=== PATIENT | female | born 1955 | race Caucasian/White ===

== ENCOUNTER → 2017-01-13 | Outpatient (CLI) | payer BC ==
[~2017-01-13] MED LIST: ATEN-173 PO; ATV1 PO; CLX20 PO; DTR5 PO; OMEG10007 PO; PRLSR20 PO; SIMV20TA2 PO
--- NOTE | 2017-01-13 13:24 | MAMMOGRAPHY REPORT ---
BILATERAL DIGITAL DIAGNOSTIC MAMMOGRAM TOMOSYNTHESIS WITH CAD AND TARGETED RIGHT ULTRASOUND: 01/13/20 17 CLINICAL HISTORY: The patient reports constant pain in the right upper outer quadrant for approximat juliette 6 months. She denies any palpable lumps. TECHNIQUE: Breast tomosynthesis in addition to standard 2D mammography was performed. Current study was also evaluated with a Computer Aided Detection (CAD) system. Bilateral CC and MLO 2-D and chata synthesis images were obtained. COMPARISON: Comparison is made to exams dated: 12/31/2015 mammogram, 12/28/2014 mammogram, 11/21/2013 mammogram, 01/09/2015 mammogram, 11/18/2012 mammogram, and 11/04/2011 mammogram - [facility]. BREAST COMPOSITION: The tissue of both breasts is heterogeneously dense, which may obscure small ma sses. FINDINGS: A triangle marker wilkinson the site of pain in the right upper outer quadrant. There are no suspicious masses, calcifications, or areas of architectural distortion noted in either breast. Th ere has been no significant interval change compared to prior exams. Scattered bilateral benign-varun earing calcifications are not significantly changed. Targeted ultrasound was performed of the area of pain pointed out by the patient, involving the righ t breast at 12:00 and right upper outer quadrant. Sonographically normal tissue is seen, without ev idence of a mass or other suspicious sonographic abnormality. IMPRESSION: ACR BI-RADS CATEGORY 2: BENIGN, TARGETED ULTRASOUND ACR BI-RADS CATEGORY 2: BENIGN No suspicious mammographic or sonographic abnormality at the site of right breast pain. There is no mammographic or targeted sonographic evidence of malignancy. Recommend clinical follow-up for righ t breast pain, and recommend routine bilateral screening mammograms in one year. The patient has been verbally notified of the results. Approximately 10% of breast cancers are not detected with mammography. A negative mammographic repor t should not delay biopsy if a clinically suggestive mass is present. Candida Brice M.D. /:01/13/2017 09:46:33 Child Welfare Consultant: Heide GUTIERREZ)(Ramos), [facility] letter sent: Normal 1/2 BI-RADS Code: ACR BI-RADS Category 2: Benign Ultrasound BI-RADS: ACR BI-RADS Category 2: Benign
== END | disposition home or self-care (01) ==
LOC: C.MAMM 09:16
PROVIDERS: ATTEND Family Medicine
DX: N64.4 Mastodynia (principal)

== ENCOUNTER → 2018-01-15 | Outpatient (CLI) | payer OTHER ==
--- NOTE | 2018-01-18 14:49 | MAMMOGRAPHY REPORT ---
BILATERAL DIGITAL SCREENING MAMMOGRAM TOMOSYNTHESIS WITH CAD: 01/15/2018 CLINICAL HISTORY: Routine screening. Patient has no complaints. TECHNIQUE: Breast tomosynthesis in addition to standard 2D mammography was performed. Current study was also evaluated with a Computer Aided Detection (CAD) system. COMPARISON: Comparison is made to exams dated: 01/13/2017 mammogram, 12/31/2015 mammogram, 07/09/2015 ul trasound, 07/09/2015 mammogram, 01/09/2015 ultrasound, and 01/09/2015 mammogram - [facility]. BREAST COMPOSITION: The tissue of both breasts is heterogeneously dense, which may obscure small mas ses. FINDINGS: No suspicious masses, calcifications, or areas of architectural distortion are noted in ei ther breast. There has been no significant interval change compared to prior exams. IMPRESSION: ACR BI-RADS CATEGORY 1: NEGATIVE There is no mammographic evidence of malignancy. A 1 year screening mammogram is recommended. The pa tient will receive written notification of the results. Approximately 10% of breast cancers are not detected with mammography. A negative mammographic report should not delay biopsy if a clinically suggestive mass is present. Candida Brice M.D. ah/:01/15/2018 15:02:31 Service Superintendent: Addie DEGROOT(Angella)(M), [facility] letter sent: Normal 1/2 BI-RADS Code: ACR BI-RADS Category 1: Negative
== END | disposition home or self-care (01) ==
LOC: C.MAMM 09:21
PROVIDERS: ATTEND Physician Assistant
DX: Z12.31 Encounter for screening mammogram for malignant neoplasm of breast (principal)

== ENCOUNTER 2021-03-06 09:16 | Inpatient (IN) ==
[2021-03-06] MEDS ORDERED: ALBUTEROL HFA 8 GM INHALER INH ONE (09:53)
[2021-03-06] MEDS ORDERED: SODIUM CHLORIDE 0.9% 1000ML 500 ML IV ONE ×2 (09:53→11:32)
[2021-03-06] MEDS ORDERED: ACETAMINOPHEN 500 MG TAB PO STA (09:53)
[2021-03-06] MEDS ORDERED: BENZONATATE 100 MG CAPSULE PO ONE (09:53)
--- NOTE | 2021-03-06 10:00 | Emergency Department Note ---
Impression & Plan Hypoxia, SOB (shortness of breath), Pneumonia, COVID-19 ED Provider Note NAME: MARGRET RAZO AGE: 65 SEX: F : 1955 ARRIVES VIA: Walk-In INFORMANT: [Patient] ED PROVIDER(S): [Yves Villarreal MD] CHIEF COMPLAINT: Short of breath HISTORY OF PRESENT ILLNESS: The patient is a 65-year-old female who presents to the ER with complaints of shortness of breath and cough. The patient has been feeling ill for a few weeks with flulike symptoms. She has had diarrhea, she lost her taste and smell, she has had fatigue and a fever. She has been short of breath with the cough. In the last day or so, her shortness of breath has worsened and her cough has worsened. She thinks the fever has subsided. The patient did test positive for COVID-19 3 days ago. She states that her family at home has Covid as well. The patient has not had any underlying lung disease diagnosed previously. She states that she has never had a DVT or PE. She has no cardiac history. Of note, her physician's office did start her on a Z-Selvin 2 days ago. She is taking this as prescribed. Of note, the patient's son called to the ED and told us we would need to check the patient's CO2 levels. REVIEW OF SYSTEMS: See HPI for pertinent positives and negatives. A total of ten systems were reviewed and were otherwise negative. PMHx/PSHx: See Below SOCIAL HISTORY: See Below. PHYSICAL EXAM: GENERAL: Patient is in no acute distress. HEENT: No acute trauma, normocephalic atraumatic, mucous membranes moist, no nasal congestion, no scleral icterus. NECK: No stridor, no adenopathy, no meningismus, trachea is midline. LUNGS: Scattered crackles at both bases, no wheezing. She is short of breath with longer sentences. No respiratory distress. HEART: Without murmurs gallops or rubs, regular rate and rhythm. ABDOMEN: Soft, nontender, bowel sounds positive, no hernias, no peritonitis. EXTREMITIES: No cyanosis or edema, full range of motion of all the joints without pain or difficulty, no signs for acute trauma. NEUROLOGIC: Oriented x 3, no acute motor or sensory deficits, no focal weakness. SKIN: No rash, no jaundice, no diaphoresis. DIFFERENTIAL DIAGNOSIS: Reactive airway disease, pneumonia, pneumothorax, COPD, CHF, COVID-19, influenza, infection, cardiac ischemia, pulmonary embolism, bronchitis, musculoskeletal, gastrointestinal, as well as other pathologies. EMERGENCY DEPARTMENT COURSE/PROCEDURES: ECG: Indication was shortness of breath. The ECG shows a normal sinus rhythm with a rate of 87. There is some baseline artifact. The QTc is 440. I see no ST elevation, no PVCs. Continuous Cardiac Monitoring: An order was placed for continuous cardiac monitoring. The monitor shows a rate of 102 with sinus tachycardia. MEDICAL DECISION MAKING: There is no leukocytosis or concerning anemia. There is a normal platelet count. No coagulopathy. D-dimer was elevated at 1130. VBG did not show any acidosis or CO2 retention. The PO2 was 26. Renal panel testing showed a somewhat low potassium at 3.1, no kidney failure. No liver enzyme elevation. ECG shows a sinus rhythm, no acute ischemia. Cardiac enzyme testing x1 is not consistent with acute cardiac injury. Chest film does show bilateral infiltrates consistent with a Covid pneumonia. Chest CT shows the same Covid pneumonia, no PE. The patient did have a low O2 saturation here at 90%. She has been feeling short of breath. She has COVID-[address] and by chest x-ray. I did confirm a positive Covid test from a few days ago through the [facility] system. Patient was given IV Decadron, 6 mg. She was given albuterol via MDI. She received a liter of IV saline for hydration. She was given IV potassium for the lower potassium value. Patient was given oral Tylenol and a dose of oral Tessalon. Given the findings of pneumonia, given the hypoxia, given her worsening dyspnea, I do think a hospital stay is warranted. I spoke to the patient and case management. The on-call hospitalist was consulted. Past Med/Surg History Medical History Acid reflux Chronic constipation Gastroparesis Hyperlipidemia Left knee DJD Persistent insomnia Sleep apnea Social History Smoking Status: Never smoker Second Hand Exposure: No; Do You Dip or Chew Tobacco: No; Tobacco Cessation Education Requested by Patient: No Hx Alcohol Use: No Hx Substance Use: No Preferred Language: Yi Communication Ability: Effective Registered Respiratory Technician Required: No Beliefs That Will Affect Care: None Current Living Situation: Family Current Living Situation Comment: With Granddaughter Other Information That Helps Us Care for You: No Feels Safe at Home: Yes Safety Concerns: Feels Safe At This Time Assistive Devices: None Allergies Allergies Allergy/AdvReac Type Severity Reaction Status Date / Time sulfamethoxazole Allergy Severe tongue Verified 03/06/21 13:50 [From Bactrim] blisters, rash trimethoprim [From Bactrim] Allergy Severe tongue Verified 03/06/21 13:50 blisters, rash bupropion [From Wellbutrin] Allergy Intermediate rash Verified 03/06/21 13:50 codeine AdvReac Mild HEADACHE,N& Verified 01/04/10 03:47 V Opioids - Morphine Analogues AdvReac Unknown headache Verified 03/06/21 13:50 Home Meds Home Medications Medication Instructions Recorded Confirmed citalopram 40 mg PO DAILY 03/06/21 03/06/21 famotidine 20 mg PO BID 03/06/21 03/06/21 losartan 50 mg PO DAILY 03/06/21 03/06/21 simvastatin 20 mg PO QPM 03/06/21 03/06/21 Results & Data (ED) Vital Signs Vital Signs - 24 hr 03/06/21 09:16 03/06/21 09:19 03/06/21 09:53 Temperature 36.7 C Temperature Source Temporal Artery Scan Pulse Rate 103 H Pulse Rate [Right Finger] Pulse Rate from SpO2 Sensor Pulse Rhythm [Right Finger] Pulse Strength [Right Finger] Respiratory Rate 24 Respiratory Effort / Characteristics Respiratory Depth Respiratory Pattern Regular Blood Pressure 156/96 H Blood Pressure [Right Arm] Blood Pressure Mean 116 Blood Pressure Mean [Right Arm] Blood Pressure Position Sitting Blood Pressure Position [Right Arm] Pulse Oximetry 90 90 91 Oxygen Delivery Method Nasal Cannula Room Air Room Air Oxygen Flow Rate 0 Sepsis Recent Fever Within 48 Hours No Sepsis New/Unexplained Change in Mental Status No Sepsis Action Taken by Nursing Physician Notified Oxygen Flow Rate - Titration 2 Pulse Oximetry Post Tiitration 97 03/06/21 10:16 03/06/21 10:30 03/06/21 11:00 Temperature Temperature Source Pulse Rate 90 86 Pulse Rate [Right Finger] Pulse Rate from SpO2 Sensor 86 84 Pulse Rhythm [Right Finger] Pulse Strength [Right Finger] Respiratory Rate 14 20 Respiratory Effort / Characteristics Respiratory Depth Respiratory Pattern Blood Pressure Blood Pressure [Right Arm] Blood Pressure Mean Blood Pressure Mean [Right Arm] Blood Pressure Position Blood Pressure Position [Right Arm] Pulse Oximetry 99 100 Oxygen Delivery Method Oxygen Flow Rate Sepsis Recent Fever Within 48 Hours Sepsis New/Unexplained Change in Mental Status Sepsis Action Taken by Nursing Oxygen Flow Rate - Titration Pulse Oximetry Post Tiitration 03/06/21 11:10 03/06/21 11:16 03/06/21 11:30 Temperature Temperature Source Pulse Rate Pulse Rate [Right Finger] 107 H Pulse Rate from SpO2 Sensor 85 82 Pulse Rhythm [Right Finger] Regular Pulse Strength [Right Finger] Normal Respiratory Rate 18 Respiratory Effort / Characteristics Non-Labored Spontaneous Respiratory Depth Normal Respiratory Pattern Blood Pressure 159/96 H 164/90 H Blood Pressure [Right Arm] 117/77 Blood Pressure Mean 117 114 Blood Pressure Mean [Right Arm] 90 Blood Pressure Position Blood Pressure Position [Right Arm] Lying Pulse Oximetry 97 93 100 Oxygen Delivery Method Nasal Cannula Oxygen Flow Rate 2 Sepsis Recent Fever Within 48 Hours Sepsis New/Unexplained Change in Mental Status Sepsis Action Taken by Nursing Oxygen Flow Rate - Titration Pulse Oximetry Post Tiitration 03/06/21 11:31 03/06/21 12:16 03/06/21 12:20 Temperature Temperature Source Pulse Rate Pulse Rate [Right Finger] Pulse Rate from SpO2 Sensor 81 97 H 100 H Pulse Rhythm [Right Finger] Pulse Strength [Right Finger] Respiratory Rate Respiratory Effort / Characteristics Respiratory Depth Respiratory Pattern Blood Pressure 117/77 Blood Pressure [Right Arm] Blood Pressure Mean 90 Blood Pressure Mean [Right Arm] Blood Pressure Position Blood Pressure Position [Right Arm] Pulse Oximetry 100 93 93 Oxygen Delivery Method Oxygen Flow Rate Sepsis Recent Fever Within 48 Hours Sepsis New/Unexplained Change in Mental Status Sepsis Action Taken by Nursing Oxygen Flow Rate - Titration Pulse Oximetry Post Tiitration 03/06/21 12:30 03/06/21 12:31 03/06/21 13:00 Temperature Temperature Source Pulse Rate Pulse Rate [Right Finger] 86 Pulse Rate from SpO2 Sensor 84 84 86 Pulse Rhythm [Right Finger] Regular Pulse Strength [Right Finger] Normal Respiratory Rate 18 Respiratory Effort / Characteristics Non-Labored Spontaneous Respiratory Depth Normal Respiratory Pattern Blood Pressure 128/73 126/82 Blood Pressure [Right Arm] 126/82 Blood Pressure Mean 91 96 Blood Pressure Mean [Right Arm] 96 Blood Pressure Position Blood Pressure Position [Right Arm] Pulse Oximetry 98 98 97 Oxygen Delivery Method Nasal Cannula Oxygen Flow Rate 2 Sepsis Recent Fever Within 48 Hours Sepsis New/Unexplained Change in Mental Status Sepsis Action Taken by Nursing Oxygen Flow Rate - Titration Pulse Oximetry Post Tiitration 03/06/21 13:01 03/06/21 13:30 03/06/21 13:31 Temperature Temperature Source Pulse Rate 79 79 Pulse Rate [Right Finger] Pulse Rate from SpO2 Sensor 87 80 80 Pulse Rhythm [Right Finger] Pulse Strength [Right Finger] Respiratory Rate 18 14 Respiratory Effort / Characteristics Respiratory Depth Respiratory Pattern Blood Pressure 128/72 Blood Pressure [Right Arm] Blood Pressure Mean 90 Blood Pressure Mean [Right Arm] Blood Pressure Position Blood Pressure Position [Right Arm] Pulse Oximetry 99 96 98 Oxygen Delivery Method Oxygen Flow Rate Sepsis Recent Fever Within 48 Hours Sepsis New/Unexplained Change in Mental Status Sepsis Action Taken by Nursing Oxygen Flow Rate - Titration Pulse Oximetry Post Tiitration Home Medications Current Medication List: was personally reviewed by me Laboratory Data Attestation: I reviewed the patient's lab results. Result diagrams: 03/06/21 10:22 03/06/21 10:22 Lab Results 03/06/21 03/06/21 03/06/21 Range/Units 10:22 10:22 10:22 WBC 5.83 (4.8-10.8) K/uL RBC 4.22 (4.2-5.4) M/uL Hgb 13.0 (12.0-16.0) g/dL Hct 37.9 (37-47) % MCV 89.8 (80-100) fL MCH 30.8 (25-34) pg MCHC 34.3 (32-36) g/dL RDW Std Deviation 42.2 (36.4-46.3) fL RDW Coeff of Lashonda 12.8 (11.5-14.5) % Plt Count 200 (130-400) K/uL MPV 10.0 (7.4-10.4) fL Immature Gran % (Auto) 0.2 % Neut % (Auto) 81.9 % Lymph % (Auto) 10.5 % Throckmorton % (Auto) 7.2 % Eos % (Auto) 0.0 % Baso % (Auto) 0.2 % Neut # (Auto) 4.78 (1.4-6.5) K/uL Lymph # (Auto) 0.61 L (1.2-3.4) K/uL Th[place]morton # (Auto) 0.42 (0.11-0.59) K/uL Eos # (Auto) 0.00 (0-0.5) K/uL Baso # (Auto) 0.01 (0-0.2) K/uL Immature Gran # (Auto) 0.01 (0.00-0.02) K/uL PT 9.4 (9.0-12.0) Seconds INR 0.9 (0.9-1.1) APTT 25.6 (21.0-31.0) Seconds PTT Ratio 1.0 D-Dimer 1130 H* (0-500) ug/L FEU VBG pH (7.36-7.41) VBG pCO2 (38-50) mmHg VBG pO2 mmHg VBG HCO3 mmol/L VBG O2 Saturation % VBG Base Excess mEq/L Barometric Pressure mm/Hg Sodium 137 (136-145) mmol/L Potassium 3.1 L (3.5-5.1) mmol/L Chloride 103 (98-107) mmol/L Carbon Dioxide 29 (21-32) mmol/L Anion Gap 5.0 (3-11) BUN 12 (7-18) mg/dl Creatinine 0.78 (0.6-1.2) mg/dl Est Cr Clr Drug Dosing 67.7 ml/min Est GFR ( Amer) 91.8 Est GFR (Non-Af Amer) 79.2 BUN/Creatinine Ratio 15.3 (10-20) Glucose 119 H (70-99) mg/dl Calcium 8.7 (8.5-10.1) mg/dl Magnesium 2.1 (1.8-2.4) mg/dl Total Bilirubin 0.4 (0.2-1) mg/dl AST 28 (15-37) U/L ALT 24 (12-78) U/L Alkaline Phosphatase 69 (45-117) U/L Troponin I < 0.015 (0-0.045) ng/ml Total Protein 7.4 (6.4-8.2) gm/dl Albumin 3.3 L (3.4-5.0) gm/dl Globulin 4.1 H (2.5-4.0) gm/dl Albumin/Globulin Ratio 0.8 L (0.9-2) 03/06/21 Range/Units 10:22 WBC (4.8-10.8) K/uL RBC (4.2-5.4) M/uL Hgb (12.0-16.0) g/dL Hct (37-47) % MCV (80-100) fL MCH (25-34) pg MCHC (32-36) g/dL RDW Std Deviation (36.4-46.3) fL RDW Coeff of Lashonda (11.5-14.5) % Plt Count (130-400) K/uL MPV (7.4-10.4) fL Immature Gran % (Auto) % Neut % (Auto) % Lymph % (Auto) % Th[place]morton % (Auto) % Eos % (Auto) % Baso % (Auto) % Neut # (Auto) (1.4-6.5) K/uL Lymph # (Auto) (1.2-3.4) K/uL [place]morton # (Auto) (0.11-0.59) K/uL Eos # (Auto) (0-0.5) K/uL Baso # (Auto) (0-0.2) K/uL Immature Gran # (Auto) (0.00-0.02) K/uL PT (9.0-12.0) Seconds INR (0.9-1.1) APTT (21.0-31.0) Seconds PTT Ratio D-Dimer (0-500) ug/L FEU VBG pH 7.45 H (7.36-7.41) VBG pCO2 46 (38-50) mmHg VBG pO2 26 mmHg VBG HCO3 31 mmol/L VBG O2 Saturation < 60.0 % VBG Base Excess 5.8 mEq/L Barometric Pressure 731.9 mm/Hg Sodium (136-145) mmol/L Potassium (3.5-5.1) mmol/L Chloride (98-107) mmol/L Carbon Dioxide (21-32) mmol/L Anion Gap (3-11) BUN (7-18) mg/dl Creatinine (0.6-1.2) mg/dl Est Cr Clr Drug Dosing ml/min Est GFR ( Amer) Est GFR (Non-Af Amer) BUN/Creatinine Ratio (10-20) Glucose (70-99) mg/dl Calcium (8.5-10.1) mg/dl Magnesium (1.8-2.4) mg/dl Total Bilirubin (0.2-1) mg/dl AST (15-37) U/L ALT (12-78) U/L Alkaline Phosphatase (45-117) U/L Troponin I (0-0.045) ng/ml Total Protein (6.4-8.2) gm/dl Albumin (3.4-5.0) gm/dl Globulin (2.5-4.0) gm/dl Albumin/Globulin Ratio (0.9-2) Administered Medications Remdesivir 200 mg/ Sodium (Chloride) 250 mls @ 125 mls/hr IV ONE ONE; Protocol Stop: 03/06/21 18:29 Last Admin: 03/06/21 16:44 Dose: 125 mls/hr Documented by: [id number] Sodium Chloride (Sodium Chloride 0.9% 10ml Flush) 30 ml IV DAILY@1200 AMANDA Stop: 03/10/21 12:01 Last Admin: 03/06/21 16:45 Dose: 30 ml Documented by: [id number] Discontinued Medications Acetaminophen (Acetaminophen 500 Mg Tab) 1,000 mg PO NOW STA Stop: 03/06/21 09:54 Last Admin: 03/06/21 11:04 Dose: 1,000 mg Documented by: [id number] Albuterol (Albuterol Hfa 8 Gm Inhaler) 3 puffs INH NOW ONE Stop: 03/06/21 09:54 Last Admin: 03/06/21 11:04 Dose: 60 puffs Documented by: [id number] Benzonatate (Benzonatate 100 Mg Capsule) 100 mg PO NOW ONE Stop: 03/06/21 09:54 Last Admin: 03/06/21 11:04 Dose: 100 mg Documented by: [id number] Dexamethasone Sodium Phosphate (DexamethasonePf 10 Mg/Ml Vial) 6 mg IV NOW ONE Stop: 03/06/21 12:53 Last Admin: 03/06/21 13:03 Dose: 6 mg Documented by: [id number] Sodium Chloride (Nss 1000ml) 500 mls @ 999 mls/hr IV .Q31M ONE Stop: 03/06/21 10:23 Last Infusion: 03/06/21 11:04 Dose: 0 mls/hr Documented by: [id number] Admin: 03/06/21 10:29 Dose: 999 mls/hr Documented by: [id number] Potassium Chloride (K Chad / Wtr) 10 meq in 100 mls @ 100 mls/hr IV ONE ONE Stop: 03/06/21 12:31 Last Infusion: 03/06/21 15:30 Dose: 0 mls/hr Documented by: [id number] Admin: 03/06/21 12:18 Dose: 100 mls/hr Documented by: [id number] Sodium Chloride (Nss 1000ml) 500 mls @ 999 mls/hr IV .Q31M ONE Stop: 03/06/21 12:02 Last Infusion: 03/06/21 15:30 Dose: 0 mls/hr Documented by: [id number] Admin: 03/06/21 12:17 Dose: 999 mls/hr Documented by: [id number] Ioversol (Optiray 320 125ml) 120 ml IV ONCE ONE Stop: 03/06/21 12:10 Last Admin: 03/06/21 12:09 Dose: 120 ml Documented by: [id number] Potassium Chloride (Potassium Chloride Pwd 20 Meq Pack) 40 meq PO ONE ONE Stop: 03/06/21 16:31 Last Admin: 03/06/21 16:45 Dose: 40 meq Documented by: [id number] Imaging Data Radiologist's Impression: Chest CTA 03/06/21 09:53 CT angio chest PE protocol CT DOSE: 533.26 mGycm HISTORY: 65 years-old Female with PE. Acute shortness of breath. COVID Positive. TECHNIQUE: Multiple CTA images of the chest were obtained after the intravenous administration of 120 ml Optiray 320. Coronal and sagittal MIPS were obtained from the axial data set and were submitted for review. All measurements were obtained according to NASCET criteria. A dose lowering technique was utilized adhering to the principles of ALARA. COMPARISON: Chest radiograph of same day FINDINGS: CTA: Heart is upper limits of normal in size. There is no pericardial effusion. There is no thoracic aortic aneurysm or dissection. The opacified pulmonary artery is unremarkable. No filling defects identified to suggest pulmonary emboli. CT CHEST: Multinodular thyroid with nodules measuring up to 1.2 cm on the left. There is a 3.4 x 2.5 cm ovoid soft tissue attenuating right paratracheal mass on image 182 series 4 suggestive of a pathologic lymph node. There are a few prominent nonenlarged paratracheal, AP window and hilar lymph nodes measuring up to 8-9 mm which are likely reactive. There is no pneumothorax or pleural effusion. Scattered multifocal peripheral prominent groundglass opacities in a bilateral multilobar distribution. No overt pulmonary edema or suspicious pulmonary nodule. The central airways are patent. Small hiatal hernia. Cholecystectomy. Probable cyst of the superior pole right kidney, 4.8 cm. No acute fracture or marrow replacing process. IMPRESSION: 1. No pulmonary emboli. 2. Multilobar bilateral peripheral predominant groundglass opacities compatible with multifocal viral pneumonia. 3. 3.4 x 2.5 cm right paratracheal lymph node is larger in size than expected for a reactive lymph node. A 2 month follow-up chest CT is recommended to further evaluate. 4. Small hiatal hernia. ACT 112: Negative or not required by law. The above report was generated using voice recognition software. It may contain grammatical, syntax or spelling errors. Electronically signed by: Hussein Ortega M.D. 03/06/2021 12:27 PM Chest X-Ray 03/06/21 09:53 XR chest 1V portable HISTORY: 65 years-old Female SOB acute shortness of breath COMPARISON: Chest radiographs 03/03/2021 TECHNIQUE: Portable AP view the chest FINDINGS: Cardiomediastinal and hilar silhouettes are within normal limits. Mildly progressed ill-defined left greater then right bibasilar and peripheral predominant airspace opacities. No pneumothorax, pleural effusion or overt pulmonary edema. Bones of the chest appear grossly intact. Degenerative changes of the shoulders and spine. IMPRESSION: Progressive bibasilar predominant airspace opacities suggestive of multifocal pneumonia. ACT 112: Negative or not required by law. The above report was generated using voice recognition software. It may contain grammatical, syntax or spelling errors. Electronically signed by: Hussein Ortega M.D. 03/06/2021 10:20 AM Discharge Plan Visit Data Chief Complaint: Shortness of Breath/Dyspnea Stated Complaint: COVID PNX, INCREASED SOB TODAY ED Provider: Yves Villarreal Discharge Problem: Hypoxia, SOB (shortness of breath), Pneumonia, COVID-19 Patient Disposition: Admitted As Inpatient Condition: Fair Discharge Instructions Interventions: ED Discharge Assessment Last Done: 03/06/21 15:00 Discharge Problem: Pneumonia Qualifiers: Pneumonia type: due to unspecified organism Laterality: bilateral Lung location: unspecified part of lung Qualified Code(s): J18.9 - Pneumonia, unspeci fied organism
--- NOTE | 2021-03-06 10:21 | XRay Report ---
XR chest 1V portable HISTORY: 65 years-old Female SOB acute shortness of breath COMPARISON: Chest radiographs 03/03/2021 TECHNIQUE: Portable AP view the chest FINDINGS: Cardiomediastinal and hilar silhouettes are within normal limits. Mildly progressed ill-defined left greater then right bibasilar and peripheral predominant airspace opacities. No pneumothorax, pleural effusion or overt pulmonary edema. Bones of the chest appear grossly intact. Degenerative changes of the shoulders and spine. IMPRESSION: Progressive bibasilar predominant airspace opacities suggestive of multifocal pneumonia. ACT 112: Negative or not required by law. The above report was generated using voice recognition software. It may contain grammatical, syntax o r spelling errors. Electronically signed by: Hussein Ortega M.D. 03/06/2021 10:20 AM
[2021-03-06 10:36] LABS: Basophils # (auto) 0.01 K/uL (0-0.2); Basophils % (auto) 0.2 %; Hematocrit (blood only) 37.9 % (37-47); Immature Granulocytes # (auto) 0.01 K/uL (0.00-0.02); Immature Granulocytes % (auto) 0.2 %; Lymphocytes # (auto) 0.61 K/uL (1.2-3.4); Lymphocytes % (auto) 10.5 %; Mean Corpuscular Hemoglobin 30.8 pg (25-34); Mean Corpuscular Hgb Conc 34.3 g/dL (32-36); Mean Corpuscular Volume 89.8 fL (80-100); Monocytes # (auto) 0.42 K/uL (0.11-0.59); Monocytes % (auto) 7.2 %; Neutrophils # (auto) 4.78 K/uL (1.4-6.5); Neutrophils % (auto) 81.9 %; Platelet Count 200 K/uL (130-400); RDW Coefficient of Variation 12.8 % (11.5-14.5); RDW Standard Deviation 42.2 fL (36.4-46.3); Red Blood Count 4.22 M/uL (4.2-5.4); White Blood Count 5.83 K/uL (4.8-10.8)
[2021-03-06 10:45] LABS: Base Excess VBG 5.8 mEq/L; HCO3 VBG 31 mmol/L; PCO2 VBG 46 mmHg (38-50); PO2 VBG 26 mmHg; pH VBG 7.45 (7.36-7.41)
[2021-03-06 10:47] LABS: Oxygen Saturation VBG < 60.0 %
[2021-03-06 10:54] LABS: INR 0.9 (0.9-1.1); Partial Thromboplastin Time 25.6 Seconds (21.0-31.0); Prothrombin Time 9.4 Seconds (9.0-12.0)
[2021-03-06 10:56] LABS: D Dimer 1130 ug/L FEU (0-500)
[2021-03-06 10:59] LABS: Alanine Aminotransferase 24 U/L (12-78); Albumin Level 3.3 gm/dl (3.4-5.0); Aspartate Aminotransferase 28 U/L (15-37); BUN Creatinine Ratio 15.3 (10-20); Blood Urea Nitrogen 12 mg/dl (7-18); Calcium 8.7 mg/dl (8.5-10.1); Carbon Dioxide 29 mmol/L (21-32); Chloride 103 mmol/L (98-107); Creatinine Clr Calc Pharmacy 67.7 ml/min; Est GFR (African American) 91.8; Est GFR (Non-African American) 79.2; Glucose 119 mg/dl (70-99); Magnesium 2.1 mg/dl (1.8-2.4); Potassium 3.1 mmol/L (3.5-5.1); Sodium 137 mmol/L (136-145)
[2021-03-06 11:04] LABS: Albumin Globulin Ratio 0.8 (0.9-2); Alkaline Phosphatase 69 U/L (45-117); Bilirubin,Total 0.4 mg/dl (0.2-1); Globulin 4.1 gm/dl (2.5-4.0); Total Protein 7.4 gm/dl (6.4-8.2); Troponin I < 0.015 ng/ml (0-0.045)
[2021-03-06] MEDS ORDERED: POTASSIUM CHLORIDE / WTR 10 MEQ/100 ML PLCT IV ONE (11:32)
[2021-03-06] MEDS ORDERED: OPTIRAY 320 125ml IV ONE (12:09)
--- NOTE | 2021-03-06 12:28 | CT Scan Report ---
CT angio chest PE protocol CT DOSE: 533.26 mGycm HISTORY: 65 years-old Female with PE. Acute shortness of breath. COVID Positive. TECHNIQUE: Multiple CTA images of the chest were obtained after the intravenous administration of 120 ml Optiray 320. Coronal and sagittal MIPS were obtained from the axial data set and were submitted for review. All measurements were obtained according to NASCET criteria. A dose lowering technique w as utilized adhering to the principles of ALARA. COMPARISON: Chest radiograph of same day FINDINGS: CTA: Heart is upper limits of normal in size. There is no pericardial effusion. There is no thoracic aorti c aneurysm or dissection. The opacified pulmonary artery is unremarkable. No filling defects identifi ed to suggest pulmonary emboli. CT CHEST: Multinodular thyroid with nodules measuring up to 1.2 cm on the left. There is a 3.4 x 2.5 cm ovoid s oft tissue attenuating right paratracheal mass on image 182 series 4 suggestive of a pathologic lymph node. There are a few prominent nonenlarged paratracheal, AP window and hilar lymph nodes measuring up to 8-9 mm which are likely reactive. There is no pneumothorax or pleural effusion. Scattered multifocal peripheral prominent groundglass o pacities in a bilateral multilobar distribution. No overt pulmonary edema or suspicious pulmonary nod ule. The central airways are patent. Small hiatal hernia. Cholecystectomy. Probable cyst of the superior pole right kidney, 4.8 cm. No acu te fracture or marrow replacing process. IMPRESSION: 1. No pulmonary emboli. 2. Multilobar bilateral peripheral predominant groundglass opacities compatible with multifocal viral pneumonia. 3. 3.4 x 2.5 cm right paratracheal lymph node is larger in size than expected for a reactive lymph no de. A 2 month follow-up chest CT is recommended to further evaluate. 4. Small hiatal hernia. ACT 112: Negative or not required by law. The above report was generated using voice recognition software. It may contain grammatical, syntax o r spelling errors. Electronically signed by: Hussein Ortega M.D. 03/06/2021 12:27 PM
[2021-03-06] MEDS ORDERED: dexAMETHasone**PF** 10 MG/ML VIAL IV ONE (12:52)
--- NOTE | 2021-03-06 13:51 | History & Physical Report ---
Date of Service March 06, 2021 Assessment & Plan (1) Pneumonia due to COVID-19 virus: COVID pneumonia by description and as seen on CT imaging. Cont with decadron and start Remdesivir today. Cont supportive care with oxygen at this time. Cough syrup and other supportive care measures as needed. Trend CRP and procalcitonin in am. (2) Hypokalemia: Potassium replacement given today in addition to what was givne in the ER. This is likely from poor PO intake recently and somewhat from loose frequent stools. Repeat in am with Mg. Replace as needed. (3) Hypertension: Currently normotensive. Cont home regimen including losartan 50mg PO daily. (4) Anxiety state, unspecified: stable, cont citalopram per home regimen. (5) Hyperlipidemia: cont simvastatin per home reigimen. (6) Acid reflux: cont famotidine per home regimen. (7) Sleep apnea: has a h/o TOMMY but is intolerant of CPAP masks. (8) DVT prophylaxis: Lovenox Full Code Dispo-to home when off oxygen and symptoms have improved. Rita Alvarado DO [facility] Hospitalist History of Present Illness Chief Complaint: SOB Primary Care Provider: Joel Wright MD 65 yo F presented from home to the ER with worsening shortness of breath. She has been feeling ill with flulike symptoms and reports diarrhea in addition to anosmia and dysgeusia. ROS also revealed fatigue and fever with cough 3 days ago. She tested positive for COVID-19 recently at an urgent care center. She otherwise denies any chest pain, abdominal pain, lightheadedness or other issues. She hasn't been eating much because of a lack of appetite. Potassium is noted to be 3.1 and she was given some potassium replacement in the ER. She reports feeling slightly better since some of the treatments given in the ER, including Decadron. We discussed the pros/cons of remdesivir therapy. Allergies Allergy/AdvReac Type Severity Reaction Status Date / Time sulfamethoxazole Allergy Severe tongue Verified 03/06/21 13:50 [From Bactrim] blisters, rash trimethoprim [From Bactrim] Allergy Severe tongue Verified 03/06/21 13:50 blisters, rash bupropion [From Wellbutrin] Allergy Intermediate rash Verified 03/06/21 13:50 codeine AdvReac Mild HEADACHE,N& Verified 01/04/10 03:47 V Opioids - Morphine Analogues AdvReac Unknown headache Verified 03/06/21 13:50 Home Medications Medication Instructions Recorded Confirmed Type citalopram 40 mg PO DAILY 03/06/21 03/06/21 History famotidine 20 mg PO BID 03/06/21 03/06/21 History losartan 50 mg PO DAILY 03/06/21 03/06/21 History simvastatin 20 mg PO QPM 03/06/21 03/06/21 History Past Med/Surg History Medical History (Updated 03/06/21 @ 19:25 by Rita Alvarado DO) Acid reflux Chronic constipation Gastroparesis Hyperlipidemia Left knee DJD Persistent insomnia Sleep apnea intolerant of CPAP Surgical History (Updated 03/06/21 @ 19:22 by Rita Alvarado DO) H/O cystoscopy H/O: hysterectomy reports h/o uterine fibroid History of cholecystectomy S/P appy S/P epigastric hernia repair, follow-up exam Family History Other Family history non-contributory Social History Smoking Status: Never smoker Second Hand Exposure: No; Do You Dip or Chew Tobacco: No; Tobacco Cessation Education Requested by Patient: No Hx Alcohol Use: No Hx Substance Use: No Preferred Language: Tamazight Communication Ability: Effective Traffic Administrator Required: No Beliefs That Will Affect Care: None Current Living Situation: Family Current Living Situation Comment: With Granddaughter Other Information That Helps Us Care for You: No Feels Safe at Home: Yes Safety Concerns: Feels Safe At This Time Assistive Devices: None Review of Systems Review of Systems: All systems reviewed & are unremarkable except as noted in Subjective Physical Exam Physical Exam: CONSTITUTIONAL: WNWD, vitals as above, generally well- appearing EYES: pupils are round and equal bilaterally, normal conjunctivae, no scleral icterus ENT: external ear and nose normal, oropharynx clear, MMM RESPIRATORY: clear to auscultation bilaterally, no crackles, rales or wheezes, normal respiratory effort CARDIOVASCULAR: regular rate and rhythm, S1 and 2 heard without murmurs, gallops or rubs, no JVD, no peripheral edema GASTROINTESTINAL: soft, nontender, nondistended, no guarding MUSCULOSKELETAL: strength 5/5 throughout, head is normocephalic and atraumatic SKIN: warm and dry NEUROLOGIC: CN 2-12 grossly intact, no sensory deficit, normal cognition, normal speech, no tremor, no gross focal deficits. PSYCHIATRIC: alert cooperative and oriented to person, place and time. Results & Data Results & Data ([facility]) Vital Signs (Past 12 Hours) Vital Signs Temp Pulse Resp BP Pulse Ox 03/06/21 09:53 91 03/06/21 09:19 36.7 C 103 H 24 156/96 H 90 03/06/21 09:16 90 Diagnostic Findings Laboratory Results WBC 5.83 K/uL (4.8-10.8) 03/06/21 10:22 RBC 4.22 M/uL (4.2-5.4) 03/06/21 10:22 Hgb 13.0 g/dL (12.0-16.0) 03/06/21 10:22 Hct 37.9 % (37-47) 03/06/21 10:22 MCV 89.8 fL (80-100) 03/06/21 10:22 MCH 30.8 pg (25-34) 03/06/21 10:22 MCHC 34.3 g/dL (32-36) 03/06/21 10:22 RDW Std Deviation 42.2 fL (36.4-46.3) 03/06/21 10:22 RDW Coeff of Lashonda 12.8 % (11.5-14.5) 03/06/21 10:22 Plt Count 200 K/uL (130-400) 03/06/21 10:22 MPV 10.0 fL (7.4-10.4) 03/06/21 10:22 Immature Gran % (Auto) 0.2 % 03/06/21 10:22 Neut % (Auto) 81.9 % 03/06/21 10:22 Lymph % (Auto) 10.5 % 03/06/21 10:22 Shannon % (Auto) 7.2 % 03/06/21 10:22 Eos % (Auto) 0.0 % 03/06/21 10:22 Baso % (Auto) 0.2 % 03/06/21 10:22 Neut # (Auto) 4.78 K/uL (1.4-6.5) 03/06/21 10: Lymph # (Auto) 0.61 K/uL (1.2-3.4) L 03/06/21 10:22 Shannon # (Auto) 0.42 K/uL (0.11-0.59) 03/06/21 10:22 Eos # (Auto) 0.00 K/uL (0-0.5) 03/06/21 10:22 Baso # (Auto) 0.01 K/uL (0-0.2) 03/06/21 10:22 Immature Gran # (Auto) 0.01 K/uL (0.00-0.02) 03/06/21 10:22 PT 9.4 Seconds (9.0-12.0) 03/06/21 10: INR 0.9 (0.9-1.1) 03/06/21 10: APTT 25.6 Seconds (21.0-31.0) 03/06/21 10: PTT Ratio 1.0 03/06/21 10:22 D-Dimer 1130 ug/L FEU (0-500) H* 03/06/21 10:22 VBG pH 7.45 (7.36-7.41) H 03/06/21 10:22 VBG pCO2 46 mmHg (38-50) 03/06/21 10:22 VBG pO2 26 mmHg 03/06/21 10:22 VBG HCO3 31 mmol/L 03/06/21 10:22 VBG O2 Saturation < 60.0 % 03/06/21 10:22 VBG Base Excess 5.8 mEq/L 03/06/21 10:22 Barometric Pressure 731.9 mm/Hg 03/06/21 10:22 Sodium 137 mmol/L (136-145) 03/06/21 10:22 Potassium 3.1 mmol/L (3.5-5.1) L 03/06/21 10: Chloride 103 mmol/L (98-107) 03/06/21 10: Carbon Dioxide 29 mmol/L (21-32) 03/06/21 10: Anion Gap 5.0 (3-11) 03/06/21 10: BUN 12 mg/dl (7-18) 03/06/21 10:22 Creatinine 0.78 mg/dl (0.6-1.2) 03/06/21 10:22 Est Cr Clr Drug Dosing 67.7 ml/min 03/06/21 10:22 Est GFR ( Amer) 91.8 03/06/21 10:22 Est GFR (Non-Af Amer) 79.2 03/06/21 10:22 BUN/Creatinine Ratio 15.3 (10-20) 03/06/21 10:22 Glucose 119 mg/dl (70-99) H 03/06/21 10:22 Calcium 8.7 mg/dl (8.5-10.1) 03/06/21 10:22 Magnesium 2.1 mg/dl (1.8-2.4) 03/06/21 10:22 Total Bilirubin 0.4 mg/dl (0.2-1) 03/06/21 10:22 AST 28 U/L (15-37) 03/06/21 10:22 ALT 24 U/L (12-78) 03/06/21 10:22 Alkaline Phosphatase 69 U/L (45-117) 03/06/21 10:22 Troponin I < 0.015 ng/ml (0-0.045) 03/06/21 10:22 Total Protein 7.4 gm/dl (6.4-8.2) 03/06/21 10:22 Albumin 3.3 gm/dl (3.4-5.0) L 03/06/21 10:22 Globulin 4.1 gm/dl (2.5-4.0) H 03/06/21 10:22 Albumin/Globulin Ratio 0.8 (0.9-2) L 03/06/21 10:22 Impressions Chest CTA 03/06/21 09:53 CT angio chest PE protocol CT DOSE: 533.26 mGycm HISTORY: 65 years-old Female with PE. Acute shortness of breath. COVID Positive. TECHNIQUE: Multiple CTA images of the chest were obtained after the intravenous administration of 120 ml Optiray 320. Coronal and sagittal MIPS were obtained from the axial data set and were submitted for review. All measurements were obtained according to NASCET criteria. A dose lowering technique was utilized adhering to the principles of ALARA. COMPARISON: Chest radiograph of same day FINDINGS: CTA: Heart is upper limits of normal in size. There is no pericardial effusion. There is no thoracic aortic aneurysm or dissection. The opacified pulmonary artery is unremarkable. No filling defects identified to suggest pulmonary emboli. CT CHEST: Multinodular thyroid with nodules measuring up to 1.2 cm on the left. There is a 3.4 x 2.5 cm ovoid soft tissue attenuating right paratracheal mass on image 182 series 4 suggestive of a pathologic lymph node. There are a few prominent nonenlarged paratracheal, AP window and hilar lymph nodes measuring up to 8-9 mm which are likely reactive. There is no pneumothorax or pleural effusion. Scattered multifocal peripheral prominent groundglass opacities in a bilateral multilobar distribution. No overt pulmonary edema or suspicious pulmonary nodule. The central airways are patent. Small hiatal hernia. Cholecystectomy. Probable cyst of the superior pole right kidney, 4.8 cm. No acute fracture or marrow replacing process. IMPRESSION: 1. No pulmonary emboli. 2. Multilobar bilateral peripheral predominant groundglass opacities compatible with multifocal viral pneumonia. 3. 3.4 x 2.5 cm right paratracheal lymph node is larger in size than expected for a reactive lymph node. A 2 month follow-up chest CT is recommended to further evaluate. 4. Small hiatal hernia. ACT 112: Negative or not required by law. The above report was generated using voice recognition software. It may contain grammatical, syntax or spelling errors. Electronically signed by: Hussein Ortega M.D. 03/06/2021 12:27 PM Chest X-Ray 03/06/21 09:53 XR chest 1V portable HISTORY: 65 years-old Female SOB acute shortness of breath COMPARISON: Chest radiographs 03/03/2021 TECHNIQUE: Portable AP view the chest FINDINGS: Cardiomediastinal and hilar silhouettes are within normal limits. Mildly progressed ill-defined left greater then right bibasilar and peripheral predominant airspace opacities. No pneumothorax, pleural effusion or overt pulmonary edema. Bones of the chest appear grossly intact. Degenerative changes of the shoulders and spine. IMPRESSION: Progressive bibasilar predominant airspace opacities suggestive of multifocal pneumonia. ACT 112: Negative or not required by law. The above report was generated using voice recognition software. It may contain grammatical, syntax or spelling errors. Electronically signed by: Hussein Ortega M.D. 03/06/2021 10:20 AM Medications Administered Dexamethasone 6 mg IV x1 Potassium 10 mg IV x1 Sodium chloride 500 cc IV x 2 bags Tylenol 1000 mg p.o. x1 Benzonatate 100 mg p.o. x1 Albuterol 3 puffs inhaled x1
--- NOTE | 2021-03-06 14:27 | Electrocardiogram Report ---
Test Reason : Blood Pressure : / mmHG Vent. Rate : 087 BPM Atrial Rate : 087 BPM P-R Int : 172 ms QRS Dur : 076 ms QT Int : 366 ms P-R-T Axes : 035 -11 007 degrees QTc Int : 440 ms Normal sinus rhythm Cannot rule out Anterior infarct , age undetermined Abnormal ECG When compared with ECG of 13-MAR-2016 18:52, Nonspecific T wave abnormality, worse in Anterior leads Confirmed by Charlie Worthy ([id number]) on 03/06/2021 2:27:13 PM Referred By: REFERRED SELF Confirmed By:Charlie Worthy
[2021-03-06] MEDS ORDERED: ACETAMINOPHEN 325 MG TAB PO PRN (15:27)
[2021-03-06] MEDS ORDERED: POLYETHYLENE (MIRALAX) 17 GM PACK PO PRN (15:27)
[2021-03-06] MEDS ORDERED: ONDANSETRON INJ 2 MG/ML 2 ML VIAL IV PRN (15:27)
[2021-03-06] MEDS ORDERED: MAGNESIUM HYDROXIDE SUSP 30 ML UDC PO PRN (15:27)
[2021-03-06] MEDS ORDERED: LOPERAMIDE HCL 2 MG CAP PO PRN (16:14)
[2021-03-06] MEDS ORDERED: REMDESIVIR 200 MG in SODIUM CHLORIDE 0.9% 210 ML IV ONE (16:30)
[2021-03-06] MEDS ORDERED: POTASSIUM CHLORIDE PWD 20 MEQ PACK PO ONE (16:30)
[2021-03-06] MEDS: SODIUM CHLORIDE 0.9% 10ML FLUSH IV SCH (16:45)
[2021-03-06] MEDS: FAMOTIDINE 20 MG TAB PO SCH (20:16)
[2021-03-06] MEDS: ENOXAPARIN INJ 40 MG/0.4 ML SYR SQ SCH (20:17)
[2021-03-06] MEDS: SIMVASTATIN 20 MG TAB PO SCH (20:17)
[2021-03-07] MEDS ORDERED: MELATONIN 3 MG TAB PO PRN (00:47)
[2021-03-07] MEDS ORDERED: MELATONIN 3 MG TAB PO ONE (00:59)
[2021-03-07 06:09] LABS: Hematocrit (blood only) 33.4 % (37-47); Hemoglobin 11.9 g/dL (12.0-16.0); Mean Corpuscular Hemoglobin 31.8 pg (25-34); Mean Corpuscular Hgb Conc 35.6 g/dL (32-36); Mean Corpuscular Volume 89.3 fL (80-100); Mean Platelet Volume 9.9 fL (7.4-10.4); Platelet Count 216 K/uL (130-400); RDW Coefficient of Variation 12.8 % (11.5-14.5); RDW Standard Deviation 41.4 fL (36.4-46.3); Red Blood Count 3.74 M/uL (4.2-5.4); White Blood Count 3.34 K/uL (4.8-10.8)
[2021-03-07 06:43] LABS: BUN Creatinine Ratio 20.2 (10-20); C Reactive Protein 5.44 mg/dl (0-0.29); Calcium 8.1 mg/dl (8.5-10.1); Est GFR (African American) 109.5; Est GFR (Non-African American) 94.5; Magnesium 2.3 mg/dl (1.8-2.4); Potassium 3.8 mmol/L (3.5-5.1)
[2021-03-07] MEDS: CITALOPRAM 40 MG TAB PO SCH (08:36)
[2021-03-07] MEDS: FAMOTIDINE 20 MG TAB PO SCH ×2 (08:36→20:45)
[2021-03-07] MEDS: LOSARTAN POTASSIUM 50 MG TAB PO SCH (08:36)
[2021-03-07] MEDS: dexAMETHasone 6 MG in SYRINGE 0 ML IV SCH (08:36)
[2021-03-07] MEDS: REMDESIVIR 100 MG in SODIUM CHLORIDE 0.9% 230 ML IV SCH (12:10)
[2021-03-07] MEDS: SODIUM CHLORIDE 0.9% 10ML FLUSH IV SCH (13:08)
--- NOTE | 2021-03-07 18:56 | Hospitalist Progress Note ---
Date of Service March 07, 2021 Assessment & Plan (1) Pneumonia due to COVID-19 virus: COVID pneumonia with improvement in symptoms. Cont with decadron and remdesivir. Cont supportive care with oxygen at this time. Cough syrup and other supportive care measures as needed. Trend CRP, currently around 5, and procalcitonin in am. (2) Hypokalemia: repleted. (3) Hypertension: Currently normotensive. Cont home regimen including losartan 50mg PO daily. (4) Anxiety state, unspecified: stable, cont citalopram per home regimen. (5) Hyperlipidemia: cont simvastatin per home reigimen. (6) Acid reflux: cont famotidine per home regimen. (7) Sleep apnea: has a h/o TOMMY but is intolerant of CPAP masks. (8) DVT prophylaxis: Lovenox Full Code Dispo-to home when off oxygen and symptoms have improved. I spoke with her daughter, Benita, by phone and discussed the plan with her and the patient together. All questions were answered. Rita Alvarado DO [facility] [address] Hospitalist Admission and Anticipated Discharge Date Admission Date: March 06, 2021 Subjective 65-year-old female admitted with Covid pneumonia Still requiring oxygen therapy however this is stable at 2 L/min Breathing has somewhat improved today Diarrhea has resolved She is tolerating p.o. Denies any chest pain or other pain at this time. Review of Systems Review of Systems: All systems reviewed & are unremarkable except as noted in Subjective Physical Exam Physical Exam: CONSTITUTIONAL: WNWD, vitals as above, generally well-varun earing EYES: normal conjunctivae, no scleral icterus ENT: external ear and nose normal, oropharynx clear, MMM RESPIRATORY: clear to auscultation bilaterally, no crackles, rales or wheezes, normal respiratory effort CARDIOVASCULAR: regular rate and rhythm, S1 and 2 heard without murmurs, gallops or rubs, no JVD, no peripheral edema GASTROINTESTINAL: soft, nontender, nondistended, no guarding MUSCULOSKELETAL: strength 5/5 throughout, head is normocephalic and atraumatic SKIN: warm and dry NEUROLOGIC: CN 2-12 grossly intact, no sensory deficit, normal cognition, normal speech, no tremor, no gross focal deficits. PSYCHIATRIC: alert cooperative and oriented to person, place and time. Results & Data Results & Data ([facility]) Vital Signs (Past 12 Hours) Vital Signs Temp Pulse Pulse Resp BP Pulse Ox 03/07/21 13:29 37.2 C 80 16 124/68 95 03/07/21 08:35 37.0 C 78 16 111/71 95 03/07/21 07:06 63 Laboratory Results Short CBC 03/07/21 Range/Units 05:47 WBC 3.34 L (4.8-10.8) K/uL Hgb 11.9 L (12.0-16.0) g/dL Hct 33.4 L (37-47) % Plt Count 216 (130-400) K/uL BMP 03/07/21 05:47 Sodium 139 Potassium 3.8 D Chloride 109 H Carbon Dioxide 27 BUN 12 Creatinine 0.61 Glucose 129 H Calcium 8.1 L Medications Administered Current Inpatient Medications Acetaminophen (Acetaminophen 325 Mg Tab) 650 mg PO Q4H PRN PRN Reason: Pain or Fever Stop: 04/05/21 15:26 Last Admin: 03/07/21 12:10 Dose: 650 mg Documented by: Citalopram Hydrobromide (Citalopram 40 Mg Tab) 40 mg PO DAILY [facility] Stop: 04/06/21 08:59 Last Admin: 03/07/21 08:36 Dose: 40 mg Documented by: Enoxaparin Sodium (Enoxaparin Inj 40 Mg/0.4 Ml Syr) 40 mg SQ HS [facility] Stop: 04/05/21 20:59 Last Admin: 03/06/21 20:17 Dose: 40 mg Documented by: Famotidine (Famotidine 20 Mg Tab) 20 mg PO BID [facility] Stop: 04/05/21 20:59 Last Admin: 03/07/21 08:36 Dose: 20 mg Documented by: Dexamethasone 6 mg/ Syringe 1.5 mls @ 1 mls/min IV QAM [facility] Stop: 04/06/21 08:59 Last Admin: 03/07/21 08:36 Dose: 1 mls/min Documented by: Remdesivir 100 mg/ Sodium (Chloride) 250 mls @ 250 mls/hr IV Q24H [facility]; Protocol Stop: 03/10/21 12:59 Last Infusion: 03/07/21 13:13 Dose: Infused Documented by: Loperamide HCl (Loperamide Hcl 2 Mg Cap) 2 mg PO UD PRN PRN Reason: diarrhea Stop: 04/05/21 16:13 Losartan Potassium (Losartan Potassium 50 Mg Tab) 50 mg PO DAILY [facility] Stop: 04/06/21 08:59 Last Admin: 03/07/21 08:36 Dose: 50 mg Documented by: Magnesium Hydroxide (Magnesium Hydroxide Susp 30 Ml Udc) 30 ml PO Q12H PRN PRN Reason: Constipation Stop: 04/05/21 15:26 Melatonin (Melatonin 3 Mg Tab) 3 mg PO HS PRN PRN Reason: Sleep Stop: 04/06/21 00:46 Ondansetron HCl (Ondansetron Inj 2 Mg/Ml 2 Ml Vial) 4 mg IV Q6H PRN PRN Reason: Nausea Stop: 04/05/21 15:26 Polyethylene Glycol (Polyethylene (Miralax) 17 Gm Pack) 17 gm PO DAILY PRN PRN Reason: Constipation Stop: 04/05/21 15:26 Simvastatin (Simvastatin 20 Mg Tab) 20 mg PO QPM [facility] Stop: 04/05/21 20:59 Last Admin: 03/06/21 20:17 Dose: 20 mg Documented by: Sodium Chloride (Sodium Chloride 0.9% 10ml Flush) 30 ml IV DAILY@1200 [facility] Stop: 03/10/21 12:01 Last Admin: 03/07/21 13:08 Dose: 30 ml Documented by:
[2021-03-07] MEDS: ENOXAPARIN INJ 40 MG/0.4 ML SYR SQ SCH (20:45)
[2021-03-07] MEDS: SIMVASTATIN 20 MG TAB PO SCH (20:45)
[2021-03-07] MEDS ORDERED: LORazepam 0.5 MG TAB PO STA (22:12)
[2021-03-08] MEDS ORDERED: LORazepam 0.5 MG TAB PO STA (00:03)
[2021-03-08 07:44] LABS: Creatinine Clr Calc Pharmacy 70.9 ml/min; Est GFR (African American) 97.8; Est GFR (Non-African American) 84.4
[2021-03-08 07:45] LABS: C Reactive Protein 1.73 mg/dl (0-0.29)
[2021-03-08] MEDS: CITALOPRAM 40 MG TAB PO SCH (08:41)
[2021-03-08] MEDS: LOSARTAN POTASSIUM 50 MG TAB PO SCH (08:41)
[2021-03-08] MEDS: dexAMETHasone 6 MG in SYRINGE 0 ML IV SCH (08:41)
[2021-03-08] MEDS: FAMOTIDINE 20 MG TAB PO SCH ×2 (08:41→20:08)
[2021-03-08] MEDS: SODIUM CHLORIDE 0.9% 10ML FLUSH IV SCH (12:19)
[2021-03-08] MEDS: REMDESIVIR 100 MG in SODIUM CHLORIDE 0.9% 230 ML IV SCH (12:19)
--- NOTE | 2021-03-08 15:56 | Hospitalist Progress Note ---
Date of Service March 08, 2021 Assessment & Plan (1) Pneumonia due to COVID-19 virus: COVID pneumonia with improvement in symptoms. Cont with decadron and remdesivir. Cont supportive care with oxygen at this time. Cough syrup and other supportive care measures as needed. Trend CRP, which trended from 5.4 to 1.7 today. (2) Hypertension: Currently normotensive. Cont home regimen including losartan 50mg PO daily. (3) Anxiety state, unspecified: stable, cont citalopram per home regimen. (4) Hyperlipidemia: cont simvastatin per home reigimen. (5) Acid reflux: cont famotidine per home regimen. (6) Sleep apnea: has a h/o TOMMY but is intolerant of CPAP masks. (7) DVT prophylaxis: Lovenox Full Code Dispo-to home when off oxygen and symptoms have improved. Rita Alvarado DO [facility] Hospitalist Admission and Anticipated Discharge Date Admission Date: March 06, 2021 Subjective 65-year-old female admitted with Covid pneumonia Having a little bit more significant hypoxia when moving around but recovering at rest Instituted continuous pulse ox as a result of this Coughing has improved, afebrile, no conversational dyspnea Still feeling fatigue and rundown Review of Systems Review of Systems: All systems reviewed & are unremarkable except as noted in Subjective Physical Exam Physical Exam: CONSTITUTIONAL: WNWD, vitals as above, generally appears fatigued and rundown EYES: normal conjunctivae, no scleral icterus ENT: external ear and nose normal, oropharynx clear, MMM RESPIRATORY: clear to auscultation bilaterally, no crackles, rales or wheezes, normal respiratory effort CARDIOVASCULAR: regular rate and rhythm, S1 and 2 heard without murmurs, gallops or rubs, no JVD, no peripheral edema GASTROINTESTINAL: soft, nontender, nondistended, no guarding MUSCULOSKELETAL: strength 5/5 throughout, head is normocephalic and atraumatic SKIN: warm and dry NEUROLOGIC: CN 2-12 grossly intact, no sensory deficit, normal cognition, normal speech, no tremor, no gross focal deficits. PSYCHIATRIC: alert cooperative and oriented to person, place and time. Results & Data Results & Data ([facility]) Vital Signs (Past 12 Hours) Vital Signs Temp Pulse Resp BP Pulse Ox 03/08/21 08:38 36.7 C 86 18 127/73 96 Laboratory Results BMP 03/08/21 06:39 Creatinine 0.74 Liver Function 03/08/21 Range/Units 06:39 AST 27 (15-37) U/L ALT 24 (12-78) U/L Medications Administered Current Inpatient Medications Acetaminophen (Acetaminophen 325 Mg Tab) 650 mg PO Q4H PRN PRN Reason: Pain or Fever Stop: 04/05/21 15:26 Last Admin: 03/07/21 12:10 Dose: 650 mg Documented by: Citalopram Hydrobromide (Citalopram 40 Mg Tab) 40 mg PO DAILY [facility] Stop: 04/06/21 08:59 Last Admin: 03/08/21 08:41 Dose: 40 mg Documented by: Enoxaparin Sodium (Enoxaparin Inj 40 Mg/0.4 Ml Syr) 40 mg SQ HS [facility] Stop: 04/05/21 20:59 Last Admin: 03/07/21 20:45 Dose: 40 mg Documented by: Famotidine (Famotidine 20 Mg Tab) 20 mg PO BID [facility] Stop: 04/05/21 20:59 Last Admin: 03/08/21 08:41 Dose: 20 mg Documented by: Dexamethasone 6 mg/ Syringe 1.5 mls @ 1 mls/min IV QAM [facility] Stop: 04/06/21 08:59 Last Admin: 03/08/21 08:41 Dose: 1 mls/min Documented by: Remdesivir 100 mg/ Sodium (Chloride) 250 mls @ 250 mls/hr IV Q24H [facility]; Protocol Stop: 03/10/21 12:59 Last Infusion: 03/08/21 13:30 Dose: Infused Documented by: Loperamide HCl (Loperamide Hcl 2 Mg Cap) 2 mg PO UD PRN PRN Reason: diarrhea Stop: 04/05/21 16:13 Losartan Potassium (Losartan Potassium 50 Mg Tab) 50 mg PO DAILY [facility] Stop: 04/06/21 08:59 Last Admin: 03/08/21 08:41 Dose: 50 mg Documented by: Magnesium Hydroxide (Magnesium Hydroxide Susp 30 Ml Udc) 30 ml PO Q12H PRN PRN Reason: Constipation Stop: 04/05/21 15:26 Melatonin (Melatonin 3 Mg Tab) 3 mg PO HS PRN PRN Reason: Sleep Stop: 04/06/21 00:46 Last Admin: 03/07/21 20:45 Dose: 3 mg Documented by: Ondansetron HCl (Ondansetron Inj 2 Mg/Ml 2 Ml Vial) 4 mg IV Q6H PRN PRN Reason: Nausea Stop: 04/05/21 15:26 Polyethylene Glycol (Polyethylene (Miralax) 17 Gm Pack) 17 gm PO DAILY PRN PRN Reason: Constipation Stop: 04/05/21 15:26 Simvastatin (Simvastatin 20 Mg Tab) 20 mg PO QPM [facility] Stop: 04/05/21 20:59 Last Admin: 03/07/21 20:45 Dose: 20 mg Documented by: Sodium Chloride (Sodium Chloride 0.9% 10ml Flush) 30 ml IV DAILY@1200 [facility] Stop: 03/10/21 12:01 Last Admin: 03/08/21 12:19 Dose: 30 ml Documented by:
[2021-03-08] MEDS: SIMVASTATIN 20 MG TAB PO SCH (20:08)
[2021-03-08] MEDS: ENOXAPARIN INJ 40 MG/0.4 ML SYR SQ SCH (20:08)
[2021-03-08] MEDS: LORazepam 0.5 MG TAB PO PRN (20:08)
[2021-03-09 06:33] LABS: Hematocrit (blood only) 33.1 % (37-47); Hemoglobin 11.5 g/dL (12.0-16.0); Mean Corpuscular Hemoglobin 31.2 pg (25-34); Mean Corpuscular Hgb Conc 34.7 g/dL (32-36); Mean Corpuscular Volume 89.7 fL (80-100); Mean Platelet Volume 10.1 fL (7.4-10.4); Platelet Count 290 K/uL (130-400); RDW Coefficient of Variation 12.8 % (11.5-14.5); RDW Standard Deviation 42.1 fL (36.4-46.3); Red Blood Count 3.69 M/uL (4.2-5.4); White Blood Count 7.05 K/uL (4.8-10.8)
[2021-03-09] MEDS ORDERED: BENZONATATE 100 MG CAPSULE PO PRN (06:48)
[2021-03-09 07:00] LABS: BUN Creatinine Ratio 27.9 (10-20); Calcium 7.9 mg/dl (8.5-10.1); Creatinine Clr Calc Pharmacy 74.9 ml/min; Est GFR (African American) 104.6; Est GFR (Non-African American) 90.3; Magnesium 2.4 mg/dl (1.8-2.4); Potassium 3.8 mmol/L (3.5-5.1)
[2021-03-09 07:02] LABS: C Reactive Protein 1.23 mg/dl (0-0.29); Phosphorus 3.4 mg/dl (2.5-4.9)
[2021-03-09] MEDS: dexAMETHasone 6 MG in SYRINGE 0 ML IV SCH (08:30)
[2021-03-09] MEDS: guaiFENesin 600 MG TABCR PO SCH ×2 (08:30→21:00)
[2021-03-09] MEDS: FAMOTIDINE 20 MG TAB PO SCH ×2 (08:31→21:00)
[2021-03-09] MEDS: CITALOPRAM 40 MG TAB PO SCH (08:31)
[2021-03-09] MEDS: LOSARTAN POTASSIUM 50 MG TAB PO SCH (08:31)
[2021-03-09] MEDS: REMDESIVIR 100 MG in SODIUM CHLORIDE 0.9% 230 ML IV SCH (11:14)
[2021-03-09] MEDS: SODIUM CHLORIDE 0.9% 10ML FLUSH IV SCH (11:15)
[2021-03-09] MEDS ORDERED: guaiFENesin/DEXTROM SYRUP 200MG/20MG 10ML UDC PO STA (19:37)
--- NOTE | 2021-03-09 19:40 | Hospitalist Progress Note ---
Date of Service March 09, 2021 Assessment & Plan (1) Pneumonia due to COVID-19 virus: COVID pneumonia with improvement in symptoms. Cont with decadron and remdesivir. Cont supportive care with oxygen at this time. Cough syrup and other supportive care measures as needed. Trend CRP, which trended from 5.4 to 1.7 already this admission. (2) Hypertension: Currently normotensive. Cont home regimen including losartan 50mg PO daily. (3) Anxiety state, unspecified: stable, cont citalopram per home regimen. (4) Hyperlipidemia: cont simvastatin per home reigimen. (5) Acid reflux: cont famotidine per home regimen. (6) Sleep apnea: has a h/o TOMMY but is intolerant of CPAP masks. (7) DVT prophylaxis: Lovenox Full Code Dispo-to home when off oxygen and symptoms have improved. Rita Alvarado DO [facility] Hospitalist Admission and Anticipated Discharge Date Admission Date: March 06, 2021 Subjective 65-year-old female admitted with Covid pneumonia Feels better overall, denies any pain or diarrhea, tolerating p.o., afebrile Review of Systems Review of Systems: All systems reviewed & are unremarkable except as noted in Subjective Physical Exam Physical Exam: CONSTITUTIONAL: WNWD, vitals as above, generally appears fatigued and rundown EYES: normal conjunctivae, no scleral icterus ENT: external ear and nose normal, oropharynx clear, MMM RESPIRATORY: clear to auscultation bilaterally, slight crackles at left base, no rales or wheezes, normal respiratory effort CARDIOVASCULAR: regular rate and rhythm, S1 and 2 heard without murmurs, gallops or rubs, no JVD, no peripheral edema GASTROINTESTINAL: soft, nontender, nondistended, no guarding MUSCULOSKELETAL: strength 5/5 throughout, head is normocephalic and atraumatic SKIN: warm and dry NEUROLOGIC: CN 2-12 grossly intact, no sensory deficit, normal cognition, normal speech, no tremor, no gross focal deficits. PSYCHIATRIC: alert cooperative and oriented to person, place and time. Results & Data Results & Data ([facility]) Vital Signs (Past 12 Hours) Vital Signs Temp Pulse Resp Pulse Ox 03/09/21 15:20 36.7 C 71 16 95 Laboratory Results Short CBC 03/09/21 Range/Units 06:03 WBC 7.05 (4.8-10.8) K/uL Hgb 11.5 L (12.0-16.0) g/dL Hct 33.1 L (37-47) % Plt Count 290 (130-400) K/uL BMP 03/09/21 06:03 Sodium 142 Potassium 3.8 Chloride 111 H Carbon Dioxide 29 BUN 20 H Creatinine 0.70 Glucose 108 H Calcium 7.9 L Liver Function 03/09/21 Range/Units 06:03 AST 20 (15-37) U/L ALT 24 (12-78) U/L Medications Administered Current Inpatient Medications Acetaminophen (Acetaminophen 325 Mg Tab) 650 mg PO Q4H PRN PRN Reason: Pain or Fever Stop: 04/05/21 15:26 Last Admin: 03/07/21 12:10 Dose: 650 mg Documented by: Benzonatate (Benzonatate 100 Mg Capsule) 100 mg PO TID PRN PRN Reason: Cough Stop: 04/08/21 06:47 Citalopram Hydrobromide (Citalopram 40 Mg Tab) 40 mg PO DAILY AMANDA Stop: 04/06/21 08:59 Last Admin: 03/09/21 08:31 Dose: 40 mg Documented by: Dexamethasone (Dexamethasone 1 Mg Tab) 6 mg PO DAILY AMANDA Stop: 04/09/21 08:59 Enoxaparin Sodium (Enoxaparin Inj 40 Mg/0.4 Ml Syr) 40 mg SQ HS AMANDA Stop: 04/05/21 20:59 Last Admin: 03/08/21 20:08 Dose: 40 mg Documented by: Famotidine (Famotidine 20 Mg Tab) 20 mg PO BID AMANDA Stop: 04/05/21 20:59 Last Admin: 03/09/21 08:31 Dose: 20 mg Documented by: Guaifenesin (Guaifenesin 600 Mg Tabcr) 600 mg PO Q12 AMANDA Stop: 04/08/21 06:49 Last Admin: 03/09/21 08:30 Dose: 600 mg Documented by: Guaifenesin/Dextromethorphan (Guaifenesin/Dextrom Syrup 200mg/20mg 10ml Udc) 10 ml PO Q6H PRN PRN Reason: Cough Stop: 04/08/21 19:36 Guaifenesin/Dextromethorphan (Guaifenesin/Dextrom Syrup 200mg/20mg 10ml Udc) 10 ml PO NOW STA Stop: 03/09/21 19:38 Remdesivir 100 mg/ Sodium (Chloride) 250 mls @ 250 mls/hr IV Q24H AMANDA; Protocol Stop: 03/10/21 12:59 Last Infusion: 03/09/21 12:15 Dose: Infused Documented by: Loperamide HCl (Loperamide Hcl 2 Mg Cap) 2 mg PO UD PRN PRN Reason: diarrhea Stop: 04/05/21 16:13 Lorazepam (Lorazepam 0.5 Mg Tab) 0.5 mg PO HS PRN PRN Reason: Anxiety/Insomnia Stop: 04/07/21 18:51 Last Admin: 03/08/21 20:08 Dose: 0.5 mg Documented by: Losartan Potassium (Losartan Potassium 50 Mg Tab) 50 mg PO DAILY AMANDA Stop: 04/06/21 08:59 Last Admin: 03/09/21 08:31 Dose: 50 mg Documented by: Magnesium Hydroxide (Magnesium Hydroxide Susp 30 Ml Udc) 30 ml PO Q12H PRN PRN Reason: Constipation Stop: 04/05/21 15:26 Melatonin (Melatonin 3 Mg Tab) 3 mg PO HS PRN PRN Reason: Sleep Stop: 04/06/21 00:46 Last Admin: 03/07/21 20:45 Dose: 3 mg Documented by: Ondansetron HCl (Ondansetron Inj 2 Mg/Ml 2 Ml Vial) 4 mg IV Q6H PRN PRN Reason: Nausea Stop: 04/05/21 15:26 Polyethylene Glycol (Polyethylene (Miralax) 17 Gm Pack) 17 gm PO DAILY PRN PRN Reason: Constipation Stop: 04/05/21 15:26 Simvastatin (Simvastatin 20 Mg Tab) 20 mg PO QPM AMANDA Stop: 04/05/21 20:59 Last Admin: 03/08/21 20:08 Dose: 20 mg Documented by: Sodium Chloride (Sodium Chloride 0.9% 10ml Flush) 30 ml IV DAILY@1200 [facility] Stop: 03/10/21 12:01 Last Admin: 03/09/21 11:15 Dose: 30 ml Documented by:
[2021-03-09] MEDS: LORazepam 0.5 MG TAB PO PRN (21:00)
[2021-03-09] MEDS: SIMVASTATIN 20 MG TAB PO SCH (21:00)
[2021-03-09] MEDS: ENOXAPARIN INJ 40 MG/0.4 ML SYR SQ SCH (21:00)
[2021-03-10 07:53] LABS: Creatinine Clr Calc Pharmacy 101.4 ml/min; Est GFR (African American) 115.4; Est GFR (Non-African American) 99.6
[2021-03-10] MEDS: dexAMETHasone 1 MG TAB PO SCH (08:02)
[2021-03-10] MEDS: guaiFENesin/DEXTROM SYRUP 200MG/20MG 10ML UDC PO PRN (08:02)
[2021-03-10] MEDS: FAMOTIDINE 20 MG TAB PO SCH ×2 (08:03→21:13)
[2021-03-10] MEDS: LOSARTAN POTASSIUM 50 MG TAB PO SCH (08:03)
[2021-03-10] MEDS: guaiFENesin 600 MG TABCR PO SCH ×2 (08:03→21:12)
[2021-03-10] MEDS: CITALOPRAM 40 MG TAB PO SCH (08:03)
[2021-03-10] MEDS: REMDESIVIR 100 MG in SODIUM CHLORIDE 0.9% 230 ML IV SCH (12:20)
[2021-03-10] MEDS: SODIUM CHLORIDE 0.9% 10ML FLUSH IV SCH (12:21)
--- NOTE | 2021-03-10 12:24 | Hospitalist Progress Note ---
Date of Service March 10, 2021 Assessment & Plan (1) Pneumonia due to COVID-19 virus: COVID pneumonia with improvement in symptoms. Cont with decadron and remdesivir. Cont supportive care with oxygen at this time. Cough syrup and other supportive care measures as needed. Trend CRP, which is improving over admissions. (2) Hypertension: Currently normotensive. Cont home regimen including losartan 50mg PO daily. (3) Anxiety state, unspecified: stable, cont citalopram per home regimen. (4) Hyperlipidemia: cont simvastatin per home reigimen. (5) Acid reflux: cont famotidine per home regimen. (6) Sleep apnea: has a h/o TOMMY but is intolerant of CPAP masks. (7) DVT prophylaxis: Lovenox Full Code Dispo-to home when off oxygen and symptoms have improved. DO [facility] Admission and Anticipated Discharge Date Admission Date: March 06, 2021 Subjective 65-year-old female admitted with Covid pneumonia Feels better overall, denies any pain or diarrhea, tolerating p.o., afebrile Review of Systems Review of Systems: All systems reviewed & are unremarkable except as noted in Subjective Physical Exam Physical Exam: CONSTITUTIONAL: WNWD, vitals as above, generally appears fatigued and rundown EYES: normal conjunctivae, no scleral icterus ENT: external ear and nose normal, oropharynx clear, MMM RESPIRATORY: clear to auscultation bilaterally, no rales or wheezes, normal respiratory effort CARDIOVASCULAR: regular rate and rhythm, S1 and 2 heard without murmurs, gallops or rubs, no JVD, no peripheral edema GASTROINTESTINAL: soft, nontender, nondistended, no guarding MUSCULOSKELETAL: strength 5/5 throughout, head is normocephalic and atraumatic SKIN: warm and dry NEUROLOGIC: CN 2-12 grossly intact, no sensory deficit, normal cognition, normal speech, no tremor, no gross focal deficits. PSYCHIATRIC: alert cooperative and oriented to person, place and time. Results & Data Results & Data ([facility]) Vital Signs (Past 12 Hours) Vital Signs Temp Pulse Resp BP Pulse Ox 03/10/21 07:57 36.9 C 85 16 148/78 H 95 Laboratory Results BMP 03/10/21 06:59 Creatinine 0.52 L Liver Function 03/10/21 Range/Units 06:59 AST 22 (15-37) U/L ALT 31 (12-78) U/L Medications Administered Current Inpatient Medications Acetaminophen (Acetaminophen 325 Mg Tab) 650 mg PO Q4H PRN PRN Reason: Pain or Fever Stop: 04/05/21 15:26 Last Admin: 03/07/21 12:10 Dose: 650 mg Documented by: Benzonatate (Benzonatate 100 Mg Capsule) 100 mg PO TID PRN PRN Reason: Cough Stop: 04/08/21 06:47 Citalopram Hydrobromide (Citalopram 40 Mg Tab) 40 mg PO DAILY AMANDA Stop: 04/06/21 08:59 Last Admin: 03/10/21 08:03 Dose: 40 mg Documented by: Dexamethasone (Dexamethasone 1 Mg Tab) 6 mg PO DAILY AMANDA Stop: 04/09/21 08:59 Last Admin: 03/10/21 08:02 Dose: 6 mg Documented by: Enoxaparin Sodium (Enoxaparin Inj 40 Mg/0.4 Ml Syr) 40 mg SQ HS AMANDA Stop: 04/05/21 20:59 Last Admin: 03/09/21 21:00 Dose: 40 mg Documented by: Famotidine (Famotidine 20 Mg Tab) 20 mg PO BID AMANDA Stop: 04/05/21 20:59 Last Admin: 03/10/21 08:03 Dose: 20 mg Documented by: Guaifenesin (Guaifenesin 600 Mg Tabcr) 600 mg PO Q12 AMANDA Stop: 04/08/21 06:49 Last Admin: 03/10/21 08:03 Dose: 600 mg Documented by: Guaifenesin/Dextromethorphan (Guaifenesin/Dextrom Syrup 200mg/20mg 10ml Udc) 10 ml PO Q6H PRN PRN Reason: Cough Stop: 04/08/21 19:36 Last Admin: 03/10/21 08:02 Dose: 10 ml Documented by: Remdesivir 100 mg/ Sodium (Chloride) 250 mls @ 250 mls/hr IV Q24H AMANDA; Protocol Stop: 03/10/21 12:59 Last Admin: 03/10/21 12:20 Dose: 250 mls/hr Documented by: Loperamide HCl (Loperamide Hcl 2 Mg Cap) 2 mg PO UD PRN PRN Reason: diarrhea Stop: 04/05/21 16:13 Lorazepam (Lorazepam 0.5 Mg Tab) 0.5 mg PO HS PRN PRN Reason: Anxiety/Insomnia Stop: 04/07/21 18:51 Last Admin: 03/09/21 21:00 Dose: 0.5 mg Documented by: Losartan Potassium (Losartan Potassium 50 Mg Tab) 50 mg PO DAILY AMANDA Stop: 04/06/21 08:59 Last Admin: 03/10/21 08:03 Dose: 50 mg Documented by: Magnesium Hydroxide (Magnesium Hydroxide Susp 30 Ml Udc) 30 ml PO Q12H PRN PRN Reason: Constipation Stop: 04/05/21 15:26 Melatonin (Melatonin 3 Mg Tab) 3 mg PO HS PRN PRN Reason: Sleep Stop: 04/06/21 00:46 Last Admin: 03/07/21 20:45 Dose: 3 mg Documented by: Ondansetron HCl (Ondansetron Inj 2 Mg/Ml 2 Ml Vial) 4 mg IV Q6H PRN PRN Reason: Nausea Stop: 04/05/21 15:26 Polyethylene Glycol (Polyethylene (Miralax) 17 Gm Pack) 17 gm PO DAILY PRN PRN Reason: Constipation Stop: 04/05/21 15:26 Simvastatin (Simvastatin 20 Mg Tab) 20 mg PO QPM AMANDA Stop: 04/05/21 20:59 Last Admin: 03/09/21 21:00 Dose: 20 mg Documented by:
[2021-03-10] MEDS: ENOXAPARIN INJ 40 MG/0.4 ML SYR SQ SCH (21:11)
[2021-03-10] MEDS: SIMVASTATIN 20 MG TAB PO SCH (21:13)
[2021-03-10] MEDS: LORazepam 0.5 MG TAB PO PRN (21:18)
[2021-03-11] MEDS: guaiFENesin/DEXTROM SYRUP 200MG/20MG 10ML UDC PO PRN ×2 (08:17→20:27)
[2021-03-11] MEDS: CITALOPRAM 40 MG TAB PO SCH (08:18)
[2021-03-11] MEDS: FAMOTIDINE 20 MG TAB PO SCH ×2 (08:18→20:27)
[2021-03-11] MEDS: LOSARTAN POTASSIUM 50 MG TAB PO SCH (08:18)
[2021-03-11] MEDS: dexAMETHasone 1 MG TAB PO SCH (08:18)
[2021-03-11] MEDS: guaiFENesin 600 MG TABCR PO SCH ×2 (08:18→20:27)
[2021-03-11 08:38] LABS: Creatinine Clr Calc Pharmacy 89.4 ml/min; Est GFR (African American) 110.7; Est GFR (Non-African American) 95.5
--- NOTE | 2021-03-11 13:12 | Hospitalist Progress Note ---
Date of Service March 11, 2021 Assessment & Plan (1) Pneumonia due to COVID-19 virus: Currently remains on 2 L of nasal cannula. Completed course of remdesivir, continue with Decadron. Supportive management with antitussives, antipyretics and antiemetic. Will trend CRP level tomorrow. Give low-dose IV Lasix 20 mg now. Monitor ins and outs. 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 (3) Anxiety state, unspecified: stable, cont citalopram per home regimen. (4) Hyperlipidemia: cont simvastatin per home reigimen. (5) Acid reflux: cont famotidine per home regimen. (6) Sleep apnea: has a h/o TOMMY but is intolerant of CPAP masks. (7) DVT prophylaxis: Lovenox Full Code Dispo-to home when off oxygen and symptoms have improved. Admission and Anticipated Discharge Date Admission Date: March 06, 2021 Subjective Doing okay this morning. Currently remains on 2 L of nasal cannula. Reports shortness of breath is improved. Does have intermittent nonproductive cough. Appetite is okay. Denies any chest pain or abdominal pain. Denies any dysuria or diarrhea. Review of Systems Review of Systems: All systems reviewed & are unremarkable except as noted in HPI & below Physical Exam Physical Exam: General: A&Ox3 HENT: NCAT, MMM, EOMI Eyes: PERRLA Neck: Supple, normal range of motion CVS: normal rate and rhythm Resp: b/l coarse breath sounds Abdomen: Soft, nondistended Extremities: No c/c/e Neuro: face symmetric, no gross focal deficits appreciated Skin: warm and dry, no rashes/lesions/errythema MSK: normal ROM, no joint swelling/erythema Results & Data Results & Data ([facility]) Vital Signs (Past 12 Hours) Vital Signs Temp Pulse Resp BP Pulse Ox 03/11/21 11:20 36.8 C 72 18 125/79 96 03/11/21 08:15 37.1 C 72 22 150/89 H 96
[2021-03-11] MEDS ORDERED: FUROSEMIDE 20 MG in SYRINGE 0 ML IV ONE (13:30)
[2021-03-11] MEDS: SIMVASTATIN 20 MG TAB PO SCH (20:27)
[2021-03-11] MEDS: ENOXAPARIN INJ 40 MG/0.4 ML SYR SQ SCH (20:27)
[2021-03-12 07:02] LABS: Basophils # (auto) 0.01 K/uL (0-0.2); Basophils % (auto) 0.1 %; Eosinophils # (auto) 0.01 K/uL (0-0.5); Eosinophils % (auto) 0.1 %; Hematocrit (blood only) 35.6 % (37-47); Hemoglobin 12.9 g/dL (12.0-16.0); Immature Granulocytes # (auto) 0.15 K/uL (0.00-0.02); Immature Granulocytes % (auto) 1.8 %; Lymphocytes # (auto) 1.46 K/uL (1.2-3.4); Lymphocytes % (auto) 17.7 %; Mean Corpuscular Hemoglobin 31.9 pg (25-34); Mean Corpuscular Hgb Conc 36.2 g/dL (32-36); Mean Corpuscular Volume 87.9 fL (80-100); Mean Platelet Volume 9.9 fL (7.4-10.4); Monocytes # (auto) 1.06 K/uL (0.11-0.59); Monocytes % (auto) 12.9 %; Neutrophils # (auto) 5.55 K/uL (1.4-6.5); Neutrophils % (auto) 67.4 %; Platelet Count 435 K/uL (130-400); RDW Coefficient of Variation 12.4 % (11.5-14.5); RDW Standard Deviation 40.2 fL (36.4-46.3); Red Blood Count 4.05 M/uL (4.2-5.4); White Blood Count 8.24 K/uL (4.8-10.8)
[2021-03-12 07:32] LABS: BUN Creatinine Ratio 29.7 (10-20); Calcium 8.2 mg/dl (8.5-10.1); Creatinine Clr Calc Pharmacy 73.2 ml/min; Est GFR (African American) 101.1; Est GFR (Non-African American) 87.3; Potassium 4.1 mmol/L (3.5-5.1)
[2021-03-12] MEDS: LOSARTAN POTASSIUM 50 MG TAB PO SCH (08:50)
[2021-03-12] MEDS: CITALOPRAM 40 MG TAB PO SCH (08:50)
[2021-03-12] MEDS: guaiFENesin 600 MG TABCR PO SCH ×2 (08:50→21:41)
[2021-03-12] MEDS: FAMOTIDINE 20 MG TAB PO SCH ×2 (08:50→21:41)
[2021-03-12] MEDS: dexAMETHasone 1 MG TAB PO SCH (08:50)
[2021-03-12] MEDS ORDERED: FUROSEMIDE 20 MG in SYRINGE 0 ML IV SCH (15:00)
--- NOTE | 2021-03-12 15:17 | Hospitalist Progress Note ---
Date of Service March 12, 2021 Assessment & Plan (1) Pneumonia due to COVID-19 virus: Currently remains on 2 L of nasal cannula. Completed course of remdesivir, continue with Decadron. Supportive management with antitussives, antipyretics and antiemetic. We will give another dose of IV Lasix 20 mg now. Continue to monitor ins and outs. Attempt to wean off the oxygen. If patient still continues to require oxygen tomorrow, simply should be discharged on oxygen. 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 (3) Anxiety state, unspecified: stable, cont citalopram per home regimen. (4) Hyperlipidemia: cont simvastatin per home reigimen. (5) Acid reflux: cont famotidine per home regimen. (6) Sleep apnea: has a h/o TOMMY but is intolerant of CPAP masks. (7) DVT prophylaxis: Lovenox Full Code Dispo-to home when off oxygen and symptoms have improved. Admission and Anticipated Discharge Date Admission Date: March 06, 2021 Subjective Okay this morning. Remains on 2 L of nasal cannula. Reports shortness of breath and cough is improved. Appetite has been good. Rest of the review of system is negative. Review of Systems Review of Systems: All systems reviewed & are unremarkable except as noted in HPI & below Physical Exam Physical Exam: General: A&Ox3 HENT: NCAT, MMM, EOMI Eyes: PERRLA Neck: Supple, normal range of motion CVS: normal rate and rhythm Resp: b/l coarse breath sounds Abdomen: Soft, nondistended Extremities: No c/c/e Neuro: face symmetric, no gross focal deficits appreciated Skin: warm and dry, no rashes/lesions/errythema MSK: normal ROM, no joint swelling/erythema Results & Data Results & Data ([facility]) Vital Signs (Past 12 Hours) Vital Signs Temp Pulse Resp BP Pulse Ox 03/12/21 08:47 36.8 C 73 20 144/83 H 93
[2021-03-12] MEDS: ENOXAPARIN INJ 40 MG/0.4 ML SYR SQ SCH (21:40)
[2021-03-12] MEDS: SIMVASTATIN 20 MG TAB PO SCH (21:41)
[2021-03-13] MEDS: FAMOTIDINE 20 MG TAB PO SCH (08:59)
[2021-03-13] MEDS: guaiFENesin 600 MG TABCR PO SCH (08:59)
[2021-03-13] MEDS: CITALOPRAM 40 MG TAB PO SCH (09:01)
[2021-03-13] MEDS: LOSARTAN POTASSIUM 50 MG TAB PO SCH (09:01)
[2021-03-13] MEDS: dexAMETHasone 1 MG TAB PO SCH (09:03)
--- NOTE | 2021-03-13 15:35 | Discharge Summary ---
Date of Service March 13, 2021 Admission HPI Per Admitting Provider 65 yo F presented from home to the ER with worsening shortness of breath. She has been feeling ill with flulike symptoms and reports diarrhea in addition to anosmia and dysgeusia. ROS also revealed fatigue and fever with cough 3 days ago. She tested positive for COVID-19 recently at an urgent care center. She otherwise denies any chest pain, abdominal pain, lightheadedness or other issues. She hasn't been eating much because of a lack of appetite. Potassium is noted to be 3.1 and she was given some potassium replacement in the ER. She reports feeling slightly better since some of the treatments given in the ER, including Decadron. We discussed the pros/cons of remdesivir therapy. Principal Diagnosis COVID-19 pneumonia Discharge Data Allergies Allergy/AdvReac Type Severity Reaction Status Date / Time sulfamethoxazole Allergy Severe tongue Verified 03/06/21 13:50 [From Bactrim] blisters, rash trimethoprim [From Bactrim] Allergy Severe tongue Verified 03/06/21 13:50 blisters, rash bupropion [From Wellbutrin] Allergy Intermediate rash Verified 03/06/21 13:50 codeine AdvReac Mild HEADACHE,N& Verified 01/04/10 03:47 V Opioids - Morphine Analogues AdvReac Unknown headache Verified 03/06/21 13:50 Consultations 03/06/21 13:02 ED Decision to Admit Stat Ordered Studies 03/06/21 09:53 CT angio chest PE protocol Stat Hospital Course (1) Pneumonia due to COVID-19 virus: Remains in room air no cough no shortness of breath no dyspnea on exertion Completed course of remdesivir, continue with Decadron p.o. Will be discharged home with 3 more days of p.o. steroid dose (2) Hypertension: Blood pressure stable, continue losartan 50mg PO daily. (3) Anxiety state, unspecified: stable, cont citalopram per home regimen. (4) Hyperlipidemia: cont simvastatin per home reigimen. (5) Acid reflux: cont famotidine per home regimen. (6) Sleep apnea: has a h/o TOMMY but is intolerant of CPAP masks. (7) DVT prophylaxis: Lovenox Full Code Dispo-stable to be discharged home today Total Time Total Time Spent Total Time Spent (In Minutes): Approximately 35 minutes Total Time Includes: Examination of the Patient, Discharge Planning and Medication Reconciliation Discharge Plan Discharge Items Patient Disposition: Home - Self-Care Reason For Visit: COVID PNEUMONIA Discharge Diagnosis: COVID 19 PNEUMONIA Condition on Discharge: Fair Activity: Resume your previous activity Non-emergency contact: Primary Care Provider Call non-emergency contact if: you have any medication questions Follow-up/Referrals: Joel Wright MD [Primary Care Provider] - 03/19/21 11:20 am (Date & Time 03/19/2021 11:20 AM Provider Joel Wright MD [facility] PLEASE NOTE THAT THIS IS A TELEHEALTH APPOINTMENT. PLEASE FOLLOW THE INSTRUCTIONS PROVIDED IN YOUR EMAIL. IF YOU HAVE ANY QUESTIONS REGARDING THIS APPOINTMENT, PLEASE CALL ) Diet: Heart Healthy Addtl Attending Provider Instructions: Please take all medications as instructed on discharge list below. It is recommended that you follow-up with your primary care physician within 1-2 weeks of hospital discharge to ensure you are still doing well. Please call if you have any questions or problems. You can reach a [facility] hospitalist on duty at [facility] 24 hours a day by calling [phone] CT CHEST :3.4 x 2.5 cm right paratracheal lymph node is larger in size than expected for a reactive lymph node. A 2 month follow-up chest CT is recommended to further evaluate. Addtl Bus Info Consultant Provider Instructions: PER CURRENT CDC GUIDELINE ; YOU CAN DISCONTINUE STRICT HOME QUARANTINE 10 DAYS F ROM THE ONSET OF YOUR SYMPTOMS OR POSITIVE COVID 19 TEST , your covid test was positive on 03/02/21 -you do not need to follow a strict home quarantine time. Please continue to wear a mask when outside, keep social distancing, wash your hands with soap and water or use alcohol-based hand automotive manufacturer frequently Pending Studies at Discharge: No Stand-Alone Forms: My [facility], Smoking Cessation Medications and DC Order Prescriptions: Continued losartan 50 mg tablet 50 mg PO DAILY RF: 0 citalopram 40 mg tablet 40 mg PO DAILY RF: 0 famotidine 20 mg tablet 20 mg PO BID RF: 0 simvastatin 20 mg tablet 20 mg PO QPM RF: 0 Discharge Orders: Discharge Order (Routine); Ordered 03/13/21 Ordered By: Lily Saucedo Admission Data Admit Date/Time: 03/06/21 13:59 Attending Provider: Lily Saucedo Admit Provider: Rita Alvarado Primary Care Provider: Joel Wright Other Providers: Rita Alvarado ; Eileen Camarillo
== END 2021-03-13 16:48 | disposition home or self-care (01) | DRG 177 ==
LOC: ED 09:16 → SUATTDRO 13:59 → 2N 13:59 → 3N 03-12 00:04

== ENCOUNTER 2021-08-24 07:56 | Observation (INO) ==
--- NOTE | 2021-08-24 08:21 | Emergency Department Note ---
Impression & Plan Atypical chest pain ED Provider Note Provider: Josef Tolentino MD DATE OF SERVICE: 08/24/2021 CHIEF COMPLAINT: Chest pain HISTORY OF PRESENT ILLNESS: Patient is a 60-year-old female history of hyperlipidemia, hypertension, GERD, and COVID-19 infection in February of this year presented today with the onset when she woke around 6 AM this morning of pain in the left breast radiating to the back across her chest. Patient denies pain with breathing or movement. She denies pain with palpation or touching this area. Denies any rash or falls. Does report may be just some slight shortness of breath. No nausea or vomiting reported. No radiation of the pain to the jaw or the arms. Patient denies a history of similar pain. Patient states since her Covid infection in February she has had some chronic fatigue which has persisted. Patient states he tried to drink a little bit of pop earlier to see if this would help and it has not. Pain is come on and been constant 07/09 since onset. Patient received aspirin 324 mg for EMS but does not normally take daily. No leg swelling or calf tenderness reported. No recent travel. Patient has not received the Covid vaccine as she had Covid in February. Patient did take some Tylenol all at [facility] when she woke up as well. REVIEW OF SYSTEMS: A total of 10 review of systems was obtained and negative except as stated above in the HPI. PAST MEDICAL HISTORY: As noted above MEDICATIONS: Reviewed home med patient is SOCIAL HISTORY: Non-smoker Family history: Father with heart attack in his 50s PHYSICAL EXAM: GENERAL: alert and oriented in no acute distress on stretcher Head: normocephalic and atraumatic EYES: No injection, discharge or icterus. NECK: Trachea midline. ENT: Mucous membranes pink and moist. LUNGS: Airway patent. No retractions. Breath sounds clear with good air entry bilaterally. HEART: Regular rate and rhythm. No chest wall tenderness ABDOMEN: Soft and non-tender, without guarding or rebound. SKIN: Acyanotic, warm, dry, without rashes EXTREMITIES: Without swelling, tenderness or deformity NEUROLOGICAL: No focal deficits. No aphasia. No facial droop or slurred speech. EK bpm normal sinus rhythm. No PVC or PAC. No acute ST segment elevation or depression. QTC 454. CONTINUOUS CARDIAC MONITORING: was ordered and showed a heart rate of 70-80s bpm in normal sinus rhythm Patient's laboratory studies and imaging reviewed. Differential includes Cardiac ischemia, aortic dissection, pulmonary embolism, pneumothorax, pneumonia, pericarditis, myocarditis, esophageal rupture, GERD, cholecystitis, pancreatitis, musculoskeletal, as well as other pathologies. IMPRESSION/MEDICAL DECISION MAKING: Patient is onset since awaking at 6 AM this morning of pain across her left chest constant with a dull pressure radiating around to the back. She has minimal anxious. She declines pain medication at this time or nitroglycerin. Patient denies any worsening of the pain with movement or touch. Minimal shortness of breath. Denies any abdominal symptoms. Patient herself without significant cardiac history but family history is strong. Patient does have a history of hypertension & hyperlipidemia. She declined nitroglycerin in route and declines again any pain medicine here initially. Patient not severely hypertensive and pain seems less likely leading indicative of aortic dissection. Also seems somewhat atypical for PE. EKG without evidence of STEMI. Blood work was completed as well as chest x-ray. Did have case management investigate the CT result recently she had for follow-up of pulmonary nodule per her report; records indicate in April and then 2 days ago she had CT scans and had inflammatory findings likely related to her Covid. Radiology report indicates improving small airway disease with chronic pericardial recess effusion. Patient without significant anemia or leukocytosis. Chest x-ray without significant acute pathology noted per radial allergy with persistent par atracheal adenopathy. Mild hypokalemia 3.4 noted. Troponin is not elevated. Creatinine within normal limits. No evidence of acute pancreatitis or hepatitis based on laboratory studies. Covid testing negative. Patient without significant change of her symptoms compared to earlier. Patient's pain again is not a provoked by movement there is no overlying rash concerning for zoster. Will try some Mylanta and see if this changes things but with her risk factors discussed with her further observation here given her ongoing chest discomfort. Heart score 4. She was in agreement. The hospitalist to be contacted. DIAGNOSIS: Chest pain DISPOSITION: Hospitalist will evaluate Patient was agreeable with this plan. Past Med/Surg History Medical History Acid reflux Anxiety state, unspecified Chronic constipation COVID-19 Gastroparesis Hyperlipidemia Hypertension Left knee DJD Persistent insomnia Sleep apnea intolerant of CPAP Surgical History H/O cystoscopy H/O: hysterectomy reports h/o uterine fibroid History of cholecystectomy S/P appy S/P epigastric hernia repair, follow-up exam Family History Father Heart disease Social History Smoking Status: Never smoker Second Hand Exposure: No; Hx Alcohol Use: No Hx Substance Use: No Preferred Language: [place] Communication Ability: Effective Flat Examiner Required: No Beliefs That Will Affect Care: None Current Living Situation: Family Current Living Situation Comment: With Granddaughter Feels Safe at Home: Yes Assistive Devices: None Allergies Allergies Allergy/AdvReac Type Severity Reaction Status Date / Time sulfamethoxazole Allergy Severe tongue Verified 08/24/21 09:52 [From Bactrim] blisters, rash trimethoprim [From Bactrim] Allergy Severe tongue Verified 08/24/21 09:52 blisters, rash bupropion [From Wellbutrin] Allergy Intermediate rash Verified 08/24/21 09:52 codeine AdvReac Mild HEADACHE,N& Verified 08/24/21 09:52 V Opioids - Morphine Analogues AdvReac Unknown headache Verified 08/24/21 09:52 Home Meds Home Medications Medication Instructions Recorded Confirmed citalopram 40 mg tablet 40 mg PO QAM 03/06/21 08/24/21 famotidine 20 mg tablet 20 mg PO BID 03/06/21 08/24/21 losartan 50 mg tablet 50 mg PO QAM 03/06/21 08/24/21 simvastatin 20 mg tablet 20 mg PO QPM 03/06/21 08/24/21 acetaminophen 500 mg tablet 500 mg PO Q6H PRN 08/24/21 08/24/21 (Tylenol Extra Strength) vit C 30 mg-s.jean 250 mg-celery 1 cap PO QAM 08/24/21 08/24/21 seed 75 mg-grape seed extrt capsule (Tart Jean) Results & Data (ED) Vital Signs Vital Signs - 24 hr 08/24/21 08:00 08/24/21 08:07 08/24/21 08:31 Temperature 37 C Temperature Source Oral Pulse Rate 77 77 Pulse Rate [Apical] Pulse Rate from SpO2 Sensor 76 Pulse Rhythm Regular Pulse Rhythm [Apical] Pulse Strength Normal Pulse Strength [Apical] Respiratory Rate 15 17 Respiratory Effort / Characteristics Non-Labored Spontaneous Respiratory Depth Normal Respiratory Pattern Regular Blood Pressure 149/89 H 149/89 H 177/84 H Blood Pressure [Right Arm] Blood Pressure Mean 109 109 115 Blood Pressure Mean [Right Arm] Blood Pressure Position Lying Pulse Oximetry 99 96 Oxygen Delivery Method Room Air Sepsis Recent Fever Within 48 Hours No Sepsis New/Unexplained Change in Mental Status N/A Sepsis Action Taken by Nursing No Action Required 08/24/21 09:00 08/24/21 10:00 08/24/21 10:30 Temperature Temperature Source Pulse Rate 77 74 73 Pulse Rate [Apical] Pulse Rate from SpO2 Sensor 76 74 73 Pulse Rhythm Pulse Rhythm [Apical] Pulse Strength Pulse Strength [Apical] Respiratory Rate 16 15 17 Respiratory Effort / Characteristics Respiratory Depth Respiratory Pattern Blood Pressure 159/87 H 148/88 H 149/91 H Blood Pressure [Right Arm] Blood Pressure Mean 111 108 110 Blood Pressure Mean [Right Arm] Blood Pressure Position Pulse Oximetry 94 98 96 Oxygen Delivery Method Sepsis Recent Fever Within 48 Hours Sepsis New/Unexplained Change in Mental Status Sepsis Action Taken by Nursing 08/24/21 11:00 08/24/21 11:30 08/24/21 13:00 Temperature Temperature Source Pulse Rate 71 78 76 Pulse Rate [Apical] Pulse Rate from SpO2 Sensor 71 78 77 Pulse Rhythm Pulse Rhythm [Apical] Pulse Strength Pulse Strength [Apical] Respiratory Rate 16 15 17 Respiratory Effort / Characteristics Respiratory Depth Respiratory Pattern Blood Pressure 131/80 159/92 H Blood Pressure [Right Arm] Blood Pressure Mean 97 114 Blood Pressure Mean [Right Arm] Blood Pressure Position Pulse Oximetry 97 98 95 Oxygen Delivery Method Sepsis Recent Fever Within 48 Hours Sepsis New/Unexplained Change in Mental Status Sepsis Action Taken by Nursing 08/24/21 13:30 08/24/21 14:03 Temperature Temperature Source Pulse Rate 78 Pulse Rate [Apical] 76 Pulse Rate from SpO2 Sensor Pulse Rhythm Pulse Rhythm [Apical] Regular Pulse Strength Pulse Strength [Apical] Normal Respiratory Rate 16 17 Respiratory Effort / Characteristics Non-Labored Spontaneous Respiratory Depth Normal Respiratory Pattern Regular Blood Pressure 132/90 Blood Pressure [Right Arm] 162/92 H Blood Pressure Mean 104 Blood Pressure Mean [Right Arm] 115 Blood Pressure Position Pulse Oximetry 98 Oxygen Delivery Method Room Air Sepsis Recent Fever Within 48 Hours Sepsis New/Unexplained Change in Mental Status Sepsis Action Taken by Nursing Laboratory Data Result diagrams: 08/24/21 08:15 08/24/21 08:15 Lab Results 08/24/21 08/24/21 08/24/21 Range/Units 08:15 08:15 08:15 WBC 5.28 (4.8-10.8) K/uL RBC 4.33 (4.2-5.4) M/uL Hgb 13.8 (12.0-16.0) g/dL Hct 40.5 (37-47) % MCV 93.5 (80-100) fL MCH 31.9 (25-34) pg MCHC 34.1 (32-36) g/dL RDW Std Deviation 44.7 (36.4-46.3) fL RDW Coeff of [place] 12.9 (11.5-14.5) % Plt Count 300 (130-400) K/uL MPV 10.7 H (7.4-10.4) fL Immature Gran % (Auto) 0.2 % Neut % (Auto) 61.5 % Lymph % (Auto) 24.8 % [place] % (Auto) 9.3 % Eos % (Auto) 3.6 % Baso % (Auto) 0.6 % Neut # (Auto) 3.25 (1.4-6.5) K/uL Lymph # (Auto) 1.31 (1.2-3.4) K/uL [place] # (Auto) 0.49 (0.11-0.59) K/uL Eos # (Auto) 0.19 (0-0.5) K/uL Baso # (Auto) 0.03 (0-0.2) K/uL Immature Gran # (Auto) 0.01 (0.00-0.02) K/uL APTT 25.5 (21.0-31.0) Seconds PTT Ratio 1.0 D-Dimer (0-500) ug/L FEU Sodium 139 (136-145) mmol/L Potassium 3.4 L (3.5-5.1) mmol/L Chloride 109 H (98-107) mmol/L Carbon Dioxide 24 (21-32) mmol/L Anion Gap 7.0 (3-11) BUN 13 (7-18) mg/dl Creatinine 0.88 (0.6-1.2) mg/dl Est Cr Clr Drug Dosing Not Reportable Est GFR ( Amer) 78.8 ml/min Est GFR (Non-Af Amer) 68.0 ml/min BUN/Creatinine Ratio 14.4 (10-20) Glucose 105 H (70-99) mg/dl Calcium 8.9 (8.5-10.1) mg/dl Magnesium 2.1 (1.8-2.4) mg/dl Total Bilirubin 0.4 (0.2-1) mg/dl AST 16 (15-37) U/L ALT 22 (12-78) U/L Alkaline Phosphatase 72 (45-117) U/L Troponin I < 0.015 (0-0.045) ng/ml Total Protein 7.3 (6.4-8.2) gm/dl Albumin 3.4 (3.4-5.0) gm/dl Globulin 3.9 (2.5-4.0) gm/dl Albumin/Globulin Ratio 0.9 (0.9-2) Lipase 110 (73-393) U/L COVID-19 Eval Order SARS-CoV-2 (PCR) (Negative) 08/24/21 08/24/21 08/24/21 Range/Units 08:25 08:25 13:52 WBC (4.8-10.8) K/uL RBC (4.2-5.4) M/uL Hgb (12.0-16.0) g/dL Hct (37-47) % MCV (80-100) fL MCH (25-34) pg MCHC (32-36) g/dL RDW Std Deviation (36.4-46.3) fL RDW Coeff of [place] (11.5-14.5) % Plt Count (130-400) K/uL MPV (7.4-10.4) fL Immature Gran % (Auto) % Neut % (Auto) % Lymph % (Auto) % [place] % (Auto) % Eos % (Auto) % Baso % (Auto) % Neut # (Auto) (1.4-6.5) K/uL Lymph # (Auto) (1.2-3.4) K/uL [place] # (Auto) (0.11-0.59) K/uL Eos # (Auto) (0-0.5) K/uL Baso # (Auto) (0-0.2) K/uL Immature Gran # (Auto) (0.00-0.02) K/uL APTT (21.0-31.0) Seconds PTT Ratio D-Dimer 680 H* (0-500) ug/L FEU Sodium (136-145) mmol/L Potassium (3.5-5.1) mmol/L Chloride (98-107) mmol/L Carbon Dioxide (21-32) mmol/L Anion Gap (3-11) BUN (7-18) mg/dl Creatinine (0.6-1.2) mg/dl Est Cr Clr Drug Dosing Est GFR ( Amer) ml/min Est GFR (Non-Af Amer) ml/min BUN/Creatinine Ratio (10-20) Glucose (70-99) mg/dl Calcium (8.5-10.1) mg/dl Magnesium (1.8-2.4) mg/dl Total Bilirubin (0.2-1) mg/dl AST (15-37) U/L ALT (12-78) U/L Alkaline Phosphatase (45-117) U/L Troponin I (0-0.045) ng/ml Total Protein (6.4-8.2) gm/dl Albumin (3.4-5.0) gm/dl Globulin (2.5-4.0) gm/dl Albumin/Globulin Ratio (0.9-2) Lipase (73-393) U/L COVID-19 Eval Order Covid19 at [facility] SARS-CoV-2 (PCR) NEGATIVE (Negative) Administered Medications Discontinued Medications Al Hydrox/Mg Hydrox/Simethicone (Gi Cocktail Ed Use) 1 dose PO ONE ONE Stop: 08/24/21 10:11 Last Admin: 08/24/21 10:24 Dose: 1 dose Documented by: [id number] Imaging Data Radiologist's Impression: Chest X-Ray 08/24/21 08:19 XR chest 1V portable HISTORY: 66 years-old Female Chest Pain . Acute atypical chest pain COMPARISON: Chest radiograph and CTA chest 03/06/2021 TECHNIQUE: Portable AP view of the chest FINDINGS: The cardiac silhouette is unchanged. Right paratracheal adenopathy redemonstrated. No pneumothorax, pleural effusion, airspace consolidation or overt pulmonary edema. Degenerative changes of the shoulders and spine. IMPRESSION: 1. No acute process. 2. Right paratracheal adenopathy redemonstrated. ACT 112: Negative or not required by law. The above report was generated using voice recognition software. It may contain grammatical, syntax or spelling errors. Electronically signed by: Kiel Ortega M.D. 08/24/2021 8:58 AM Discharge Plan Visit Data Chief Complaint: Chest Pain ED Provider: Josef Tolentino Discharge Problem: Atypical chest pain Patient Disposition: Being Evaluated by Hospitalist Discharge Instructions Interventions: ED Discharge Assessment Last Done: 08/24/21 14:05 Forms Stand Alone Forms: [facility] Prescriptions Prescriptions: No Action losartan 50 mg tablet 50 mg PO QAM RF: 0 citalopram 40 mg tablet 40 mg PO QAM RF: 0 famotidine 20 mg tablet 20 mg PO BID RF: 0 simvastatin 20 mg tablet 20 mg PO QPM RF: 0 acetaminophen [Tylenol Extra Strength] 500 mg Tablet 500 mg PO Q6H PRN (Reason: Pain) RF: 0 Tart Jean 30-240-58-75-20 mg Capsule 1 cap PO QAM RF: 0 Referrals Referrals: Joel Wright MD [Primary Care Provider] -
[2021-08-24 08:41] LABS: Basophils # (auto) 0.03 K/uL (0-0.2); Basophils % (auto) 0.6 %; Eosinophils # (auto) 0.19 K/uL (0-0.5); Eosinophils % (auto) 3.6 %; Hematocrit (blood only) 40.5 % (37-47); Hemoglobin 13.8 g/dL (12.0-16.0); Immature Granulocytes # (auto) 0.01 K/uL (0.00-0.02); Immature Granulocytes % (auto) 0.2 %; Lymphocytes # (auto) 1.31 K/uL (1.2-3.4); Lymphocytes % (auto) 24.8 %; Mean Corpuscular Hemoglobin 31.9 pg (25-34); Mean Corpuscular Hgb Conc 34.1 g/dL (32-36); Mean Corpuscular Volume 93.5 fL (80-100); Mean Platelet Volume 10.7 fL (7.4-10.4); Monocytes # (auto) 0.49 K/uL (0.11-0.59); Monocytes % (auto) 9.3 %; Neutrophils # (auto) 3.25 K/uL (1.4-6.5); Neutrophils % (auto) 61.5 %; Platelet Count 300 K/uL (130-400); RDW Coefficient of Variation 12.9 % (11.5-14.5); RDW Standard Deviation 44.7 fL (36.4-46.3); Red Blood Count 4.33 M/uL (4.2-5.4); White Blood Count 5.28 K/uL (4.8-10.8)
--- NOTE | 2021-08-24 08:59 | XRay Report ---
XR chest 1V portable HISTORY: 66 years-old Female Chest Pain . Acute atypical chest pain COMPARISON: Chest radiograph and CTA chest 03/06/2021 TECHNIQUE: Portable AP view of the chest FINDINGS: The cardiac silhouette is unchanged. Right paratracheal adenopathy redemonstrated. No pneumothorax, p leural effusion, airspace consolidation or overt pulmonary edema. Degenerative changes of the shoulde rs and spine. IMPRESSION: 1. No acute process. 2. Right paratracheal adenopathy redemonstrated. ACT 112: Negative or not required by law. The above report was generated using voice recognition software. It may contain grammatical, syntax o r spelling errors. Electronically signed by: Kiel Ortega M.D. 08/24/2021 8:58 AM
[2021-08-24 09:03] LABS: Partial Thromboplastin Time 25.5 Seconds (21.0-31.0)
[2021-08-24 09:07] LABS: Alanine Aminotransferase 22 U/L (12-78); Albumin Level 3.4 gm/dl (3.4-5.0); Aspartate Aminotransferase 16 U/L (15-37); BUN Creatinine Ratio 14.4 (10-20); Blood Urea Nitrogen 13 mg/dl (7-18); Calcium 8.9 mg/dl (8.5-10.1); Carbon Dioxide 24 mmol/L (21-32); Chloride 109 mmol/L (98-107); Est GFR (African American) 78.8 ml/min; Glucose 105 mg/dl (70-99); Lipase 110 U/L (73-393); Potassium 3.4 mmol/L (3.5-5.1); Sodium 139 mmol/L (136-145)
[2021-08-24 09:12] LABS: Albumin Globulin Ratio 0.9 (0.9-2); Alkaline Phosphatase 72 U/L (45-117); Bilirubin,Total 0.4 mg/dl (0.2-1); Globulin 3.9 gm/dl (2.5-4.0); Total Protein 7.3 gm/dl (6.4-8.2); Troponin I < 0.015 ng/ml (0-0.045)
[2021-08-24] MEDS ORDERED: GI COCKTAIL ED USE PO ONE (10:10)
[2021-08-24] MEDS ORDERED: POTASSIUM CHLORIDE CRTAB 20 MEQ TABCR PO ONE (12:18)
--- NOTE | 2021-08-24 12:26 | History & Physical Report ---
Date of Service August 24, 2021 Assessment & Plan (1) Atypical chest pain: Plan: -admit to tele -patient presenting from home with reports of left sided chest pain that awoke her from sleep this morning. No specific causative or alleviating factors. -received GI cocktail in the ED, patient declined nitro -initial trop negative, EKG without acute ST changes -risk factors - HTN, HLD, + family history -?? due to anxiety -check D. Dimer -continue to cycle cardiac enzymes, if negative refer for outpatient stress test (2) Anxiety state, unspecified: Plan: -patient's chest pain may be from underlying panic attack -patient agreeable to psychiatry eval -continue citalopram (3) Hypertension: Plan: -BP controlled, continue losartan (4) DVT prophylaxis: Plan: -SQ Lovenox History of Present Illness Chief Complaint: Chest pain Primary Care Provider: Joel Wright MD 66-year-old female with PMH HTN, HLD, anxiety, TOMMY intolerant of CPAP, and other problems listed below who presents to the ED for evaluation of chest pain. Patient reports that yesterday she felt fatigued. She also has some intermitt ent shortness of breath and cough which she reports has been present since her COVID-19 pneumonia in February 2021. She denies any worsening of this. This morning around 6 AM, she was awoken out of sleep with pain under her left breast that radiated into the left side of her chest and into her left shoulder blade. Patient rates the pain as a #8/10. She describes the pain as an ache. She reports associated lightheadedness and dizziness. No specific causative or alleviating factors. She reports she continues to have pain however is declining nitro and other pain medications. During my exam, patient became tearful and reports that she feels as though she is having an anxiety attack. She reports increased stressors at home with her passing away about 1 year ago and having 2 grandchildren live with her. Patient denies suicidal or homicidal ideations. No other recent illnesses, fevers, chills. She denies abdominal pain, nausea, vomiting, diarrhea. No urinary symptoms. In the ED, patient is hemodynamically stable. Initial troponin is negative and EKG does not show any acute ST changes. Patient was given a GI cocktail. Allergies Allergy/AdvReac Type Severity Reaction Status Date / Time sulfamethoxazole Allergy Severe tongue Verified 08/24/21 09:52 [From Bactrim] blisters, rash trimethoprim [From Bactrim] Allergy Severe tongue Verified 08/24/21 09:52 blisters, rash bupropion [From Wellbutrin] Allergy Intermediate rash Verified 08/24/21 09:52 codeine AdvReac Mild HEADACHE,N& Verified 08/24/21 09:52 V Opioids - Morphine Analogues AdvReac Unknown headache Verified 08/24/21 09:52 Home Medications Medication Instructions Recorded Confirmed Type citalopram 40 mg tablet 40 mg PO QAM 03/06/21 08/24/21 History famotidine 20 mg tablet 20 mg PO BID 03/06/21 08/24/21 History losartan 50 mg tablet 50 mg PO QAM 03/06/21 08/24/21 History simvastatin 20 mg tablet 20 mg PO QPM 03/06/21 08/24/21 History acetaminophen 500 mg tablet 500 mg PO Q6H PRN 08/24/21 08/24/21 History (Tylenol Extra Strength) vit C 30 mg-s.jean 250 mg-celery 1 cap PO QAM 08/24/21 08/24/21 History seed 75 mg-grape seed extrt capsule (Tart Jean) Past Med/Surg History Medical History Acid reflux Anxiety state, unspecified Chronic constipation COVID-19 Gastroparesis Hyperlipidemia Hypertension Left knee DJD Persistent insomnia Sleep apnea intolerant of CPAP Surgical History H/O cystoscopy H/O: hysterectomy reports h/o uterine fibroid History of cholecystectomy S/P appy S/P epigastric hernia repair, follow-up exam Family History Father Heart disease Social History Smoking Status: Never smoker Second Hand Exposure: No; Hx Alcohol Use: No Hx Substance Use: No Preferred Language: [place] Irish Communication Ability: Effective Electroencephalographic Technician Required: No Beliefs That Will Affect Care: None Current Living Situation: Family Current Living Situation Comment: With Granddaughter Feels Safe at Home: Yes Assistive Devices: None Review of Systems Review of Systems: ROS per HPI, all other systems reviewed and negative Physical Exam Constitutional: WD/WN, vitals as above Eyes: PERRL, conjunctivae normal, anicteric sclerae ENMT: external ear and nose normal, oropharynx normal Respiratory: normal respiratory effort, lungs clear to auscultation Chest (Breasts): Additional Comments: Chest wall nontender, chest pain not reproducible with palpation Gastrointestinal (Abdomen): normal bowel sounds, soft, nontender, no hepatosplenomegaly Musculoskeletal: no cyanosis or clubbing, extremities motor strength 5/5 Skin: no rashes, warm and dry Neurologic: PERRL, EOMI, accommodation nl, no face palsy, no dysarthria Psychiatric: A+Ox3, euthymic affect Results & Data Results & Data ([facility]) Vital Signs (Past 12 Hours) Vital Signs Temp Pulse Resp BP Pulse Ox 08/24/21 10:00 74 15 148/88 H 98 08/24/21 09:00 77 16 159/87 H 94 08/24/21 08:31 77 17 177/84 H 96 08/24/21 08:07 149/89 H 08/24/21 08:00 37 C 77 15 149/89 H 99 Laboratory Results Short CBC 08/24/21 Range/Units 08:15 WBC 5.28 (4.8-10.8) K/uL Hgb 13.8 (12.0-16.0) g/dL Hct 40.5 (37-47) % Plt Count 300 (130-400) K/uL BMP 08/24/21 08:15 Sodium 139 Potassium 3.4 L Chloride 109 H Carbon Dioxide 24 BUN 13 Creatinine 0.88 Glucose 105 H Calcium 8.9 Cardiac Enzymes 08/24/21 Range/Units 08:15 Troponin I < 0.015 (0-0.045) ng/ml Liver Function 08/24/21 Range/Units 08:15 Total Bilirubin 0.4 (0.2-1) mg/dl AST 16 (15-37) U/L ALT 22 (12-78) U/L Alkaline Phosphatase 72 (45-117) U/L Albumin 3.4 (3.4-5.0) gm/dl Diagnostic Findings Chest X-Ray 08/24/21 08:19 XR chest 1V portable HISTORY: 66 years-old Female Chest Pain . Acute atypical chest pain COMPARISON: Chest radiograph and CTA chest 03/06/2021 TECHNIQUE: Portable AP view of the chest FINDINGS: The cardiac silhouette is unchanged. Right paratracheal adenopathy redemonstrate d. No pneumothorax, pleural effusion, airspace consolidation or overt pulmonary edema. Degenerative changes of the shoulders and spine. IMPRESSION: 1. No acute process. 2. Right paratracheal adenopathy redemonstrated. ACT 112: Negative or not required by law. The above report was generated using voice recognition software. It may contain grammatical, syntax or spelling errors. Electronically signed by: Kiel Ortega M.D. 08/24/2021 8:58 AM Code Status & VTE Plan VTE Prophylaxis Plan VTE Prophylaxis will be ordered: Yes Supervising Physician Co-Signing Physician Notes 66 yo F w/ PMH of HTN, HLD, anxiety, TOMMY intolerant of CPAP, GERD, chronic constipation, gastroparesis presented 08/24 with chest pain x lt that she woke up with at 6AM [employer]. Patient describes the pain as dull,8/10, nonreproducible, radiating to the back. She also reports intermittent shortness of breath and cough which has been present since her COVID-19 pneumonia in February 2021 but has not worsened per her. She reports increased stressors at home ( 1 year ago, taking care of 2 grandchildren). 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 Intial trop neg, EKG NSR 70 HR. Trend trop, get d-dimer. K+ level low, replace. Get psychiatry eval. continue telemetry. upon exam: GENERAL: Alert and oriented x3. NAD, on RA. HEENT: No pallor, no icterus. Pupils equal, round and reactive to light. Oral mucosa moist. NECK: No JVD, no neck masses. Chest pain: non reproducible. HEART: S1 and S2 heard. Regular rate and rhythm. No murmur, no gallop. RESPIRATORY SYSTEM: Normal AP diameter. No accessory muscle use. No wheezing, no crackles. ABDOMEN: Soft, bowel sounds present, nontender, no distention. CENTRAL NERVOUS SYSTEM: Alert and oriented x3. No facial droop. Speech is clear. Obeys simple commands. Moves extremities. EXTREMITIES: No edema, no erythema seen. I have seen and examined the patient and have discussed the case with the provider above. I agree with the assessment and plan as stated.
[2021-08-24 13:56] LABS: Magnesium 2.1 mg/dl (1.8-2.4)
[2021-08-24 14:36] LABS: D Dimer 680 ug/L FEU (0-500)
[2021-08-24] MEDS ORDERED: OPTIRAY 320 125ml IV ONE (15:29)
[2021-08-24] MEDS ORDERED: NITROGLYCERIN SL 0.4 MG/TAB TAB SL PRN (15:54)
[2021-08-24] MEDS ORDERED: ACETAMINOPHEN 325 MG TAB PO PRN (15:54)
[2021-08-24] MEDS ORDERED: LABETALOL HCL IV 5 MG/ML 20ML IV PRN (16:25)
[2021-08-24] MEDS ORDERED: hydrALAZINE HCL 20 MG/ML VIAL IM PRN (16:25)
--- NOTE | 2021-08-24 16:29 | CT Scan Report ---
CT angio chest PE protocol CT DOSE: 418.23 mGy.cm HISTORY: 66 years-old Female with PE. Acute chest pain with shortness of breath TECHNIQUE: Multiple CTA images of the chest were obtained after the intravenous administration of 118 ml Optiray. Coronal and sagittal MIPS were obtained from the axial data set and were submitted for review. All measurements were obtained according to NASCET criteria. A dose lowering technique was u tilized adhering to the principles of ALARA. COMPARISON: Chest radiograph of same day, CTA chest 03/06/2021 FINDINGS: CTA: The heart is upper limits of normal in size. No pericardial effusion. No thoracic aortic aneurysm or dissection. Unremarkable pulmonary artery. No pulmonary emboli. CT CHEST: Multinodular thyroid with nodules on the right measuring up to 10 mm. 3.5 x 2.6 cm right paratracheal lymph node on image 193 series 4 is unchanged from comparison. No additional adenopathy. No pneumoth orax, pleural effusion, airspace consolidation or overt pulmonary edema. No suspicious pulmonary nodu les or masses. Small left Bochdalek hernia. Patent airway. Small hiatal hernia. Cholecystectomy. Unremarkable soft tissues. Degenerative changes of the spine an d shoulders. IMPRESSION: 1. No acute intrathoracic abnormality. No pulmonary emboli. 2. 3.5 x 2.6 cm pathologic right paratracheal lymph node is stable from 03/06/2021 3. Small hiatal hernia. ACT 112: Negative or not required by law. The above report was generated using voice recognition software. It may contain grammatical, syntax o r spelling errors. Electronically signed by: Kiel Ortega M.D. 08/24/2021 4:28 PM
[2021-08-24] MEDS ORDERED: LORazepam 0.5 MG TAB PO PRN (17:19)
[2021-08-24] MEDS: FAMOTIDINE 20 MG TAB PO SCH (20:45)
[2021-08-24] MEDS ORDERED: SIMVASTATIN 20 MG TAB PO SCH (21:00)
[2021-08-24] MEDS ORDERED: ENOXAPARIN INJ 40 MG/0.4 ML SYR SQ SCH (21:00)
--- NOTE | 2021-08-25 07:10 | Electrocardiogram Report ---
Test Reason : Blood Pressure : / mmHG Vent. Rate : 076 BPM Atrial Rate : 076 BPM P-R Int : 170 ms QRS Dur : 078 ms QT Int : 404 ms P-R-T Axes : 048 001 020 degrees QTc Int : 454 ms Normal sinus rhythm Nonspecific T wave abnormality When compared with ECG of 06-MAR-2021 10:13, No significant change was found Confirmed by Damien Scruggs ([id number]) on 08/25/2021 7:10:38 AM Referred By: REFERRED SELF Confirmed By:Damien Scruggs
[2021-08-25 08:33] LABS: Hematocrit (blood only) 41.2 % (37-47); Hemoglobin 13.8 g/dL (12.0-16.0); Mean Corpuscular Hemoglobin 31.7 pg (25-34); Mean Corpuscular Hgb Conc 33.5 g/dL (32-36); Mean Corpuscular Volume 94.5 fL (80-100); Mean Platelet Volume 10.6 fL (7.4-10.4); Platelet Count 313 K/uL (130-400); RDW Coefficient of Variation 13.1 % (11.5-14.5); RDW Standard Deviation 45.6 fL (36.4-46.3); Red Blood Count 4.36 M/uL (4.2-5.4); White Blood Count 3.93 K/uL (4.8-10.8)
[2021-08-25] MEDS: FAMOTIDINE 20 MG TAB PO SCH (08:37)
[2021-08-25] MEDS ORDERED: LOSARTAN POTASSIUM 50 MG TAB PO SCH (09:00)
[2021-08-25] MEDS ORDERED: CITALOPRAM 40 MG TAB PO SCH (09:00)
[2021-08-25 09:18] LABS: BUN Creatinine Ratio 17.3 (10-20); Creatinine Clr Calc Pharmacy 61.1 ml/min; Est GFR (African American) 83.4 ml/min; Est GFR (Non-African American) 71.9 ml/min
--- NOTE | 2021-08-25 14:01 | Discharge Summary ---
Date of Service August 25, 2021 Admission HPI Per Admitting Provider 66-year-old female with PMH HTN, HLD, anxiety, TOMMY intolerant of CPAP, and other problems listed below who presents to the ED for evaluation of chest pain. Patient reports that yesterday she felt fatigued. She also has some intermittent shortness of breath and cough which she reports has been present since her COVID-19 pneumonia in February 2021. She denies any worsening of this. This morning around 6 AM, she was awoken out of sleep with pain under her left breast that radiated into the left side of her chest and into her left shoulder blade. Patient rates the pain as a #8/10. She describes the pain as an ache. She reports associated lightheadedness and dizziness. No specific causative or alleviating factors. She reports she continues to have pain however is declining nitro and other pain medications. During my exam, patient became tearful and reports that she feels as though she is having an anxiety attack. She reports increased stressors at home with her passing away about 1 year ago and having 2 grandchildren live with her. Patient denies suicidal or homicidal ideations. No other recent illnesses, fevers, chills. She denies abdominal pain, nausea, vomiting, diarrhea. No urinary symptoms. In the ED, patient is hemodynamically stable. Initial troponin is negative and EKG does not show any acute ST changes. Patient was given a GI cocktail. Admission Exam Per Admitting Provider GENERAL: Alert and oriented x3. NAD, on RA. HEENT: No pallor, no icterus. Pupils equal, round and reactive to light. Oral mucosa moist. NECK: No JVD, no neck masses. Chest pain: non reproducible. HEART: S1 and S2 heard. Regular rate and rhythm. No murmur, no gallop. RESPIRATORY SYSTEM: Normal AP diameter. No accessory muscle use. No wheezing, no crackles. ABDOMEN: Soft, bowel sounds present, nontender, no distention. CENTRAL NERVOUS SYSTEM: Alert and oriented x3. No facial droop. Speech is clear. Obeys simple commands. Moves extremities. EXTREMITIES: No edema, no erythema seen. Principal Diagnosis Atypical chest pain Anxiety Discharge Exam GENERAL: Alert and oriented x3. NAD, on RA. HEENT: No pallor, no icterus. Pupils equal, round and reactive to light. Oral mucosa moist. NECK: No JVD, no neck masses. Chest pain: non reproducible. HEART: S1 and S2 heard. Regular rate and rhythm. No murmur, no gallop. RESPIRATORY SYSTEM: Normal AP diameter. No accessory muscle use. No wheezing, no crackles. ABDOMEN: Soft, bowel sounds present, nontender, no distention. CENTRAL NERVOUS SYSTEM: Alert and oriented x3. No facial droop. Speech is clear. Obeys simple commands. Moves extremities. EXTREMITIES: No edema, no erythema seen. Discharge Data Allergies Allergy/AdvReac Type Severity Reaction Status Date / Time sulfamethoxazole Allergy Severe tongue Verified 08/24/21 09:52 [From Bactrim] blisters, rash trimethoprim [From Bactrim] Allergy Severe tongue Verified 08/24/21 09:52 blisters, rash bupropion [From Wellbutrin] Allergy Intermediate rash Verified 08/24/21 09:52 codeine AdvReac Mild HEADACHE,N& Verified 08/24/21 09:52 V Opioids - Morphine Analogues AdvReac Unknown headache Verified 08/24/21 09:52 Consultations 08/24/21 11:24 ED Decision to Admit Stat 08/24/21 15:54 Consult Psychiatry Routine Ordered Studies 08/24/21 15:09 CT angio chest PE protocol Routine Hospital Course (1) Anxiety state, unspecified: (2) Atypical chest pain: 66 yo F w/ PMH of HTN, HLD, anxiety, TOMMY intolerant of CPAP, GERD, chronic constipation, gastroparesis presented 08/24 with chest pain x lt that she woke up with at 6AM [employer] WORK[employer]. Patient described the pain as dull,8/10, nonreproducible, radiating to the back. She also reports intermittent shortness of breath and cough which has been present since her COVID-19 pneumonia in February 2021 but has not worsened per her. She reports increased stressors at home ( 1 year ago, taking care of 2 grandchildren). 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 She was managed for the following while inpatient: (1) Atypical chest pain: -History of [place] in father in late 50s. -Observation under telemetry, troponin x3 -, EKG WNL. -D-dimer elevated, CTA chest negative for PE. CTA chest showed stable but pathologic right paratracheal lymph node, patient to follow-up as an outpatient if has not been followed up for this. -No complaint of further chest pain. -Likely secondary to anxiety -Patient advised to follow-up outpatient cardiology for possible need of stress test. (2) Anxiety state, unspecified: -patient's chest pain may be from underlying panic attack -Psychiatry evaluated while inpatient, recommended to continue current home medication and advised to give some Ativan as needed for breakthrough anxiety. (3) Hypertension: -BP controlled, continue losartan (4) DVT prophylaxis: -SQ Lovenox while inpatient Patient discharged to home with following instructions: Follow-up with your primary care physician within a week time. As per inpatient psychiatry evaluation, we will be discharging you on some as needed Ativan for anxiety. Follow-up with your PCP/Psy Doc for further evaluation and prescription. You will need to get an outpatient cardiac evaluation as discussed at the beds [facility] in 1-2 months time. Take medications as prescribed. Have your right paratracheal lymph node evaluated as an outpatient which has been present since February 2021 if you have not have it evaluated yet. Total Time Total Time Spent Total Time Spent (In Minutes): 35 Discharge Plan Discharge Items Patient Disposition: Home - Self-Care Reason For Visit: CHEST PAIN Discharge Diagnosis: Atypical chest pain Anxiety attacks Activity: Resume your previous activity Non-emergency contact: Primary Care Provider Call non-emergency contact if: you have any medication questions, your symptoms worsen and your pain is worsening Follow-up/Referrals: Joel Wright MD [Primary Care Provider] - Diet: Heart Healthy Addtl Attending Provider Instructions: Follow-up with your primary care physician within a week time. As per inpatient psychiatry evaluation, we will be discharging you on some as needed Ativan for anxiety. Follow-up with your PCP/Psy Doc for further evaluation and prescription. You will need to get an outpatient cardiac evaluation as discussed at the bedside in 1-2 months time. Take medications as prescribed. Have your right paratracheal lymph node evaluated as an outpatient which has been present since February 2021 if you have not have it evaluated yet. Pending Studies at Discharge: No Stand-Alone Forms: My [facility], Smoking Cessation Medications and DC Order Prescriptions: New lorazepam 0.5 mg Tablet 0.5 mg PO BID PRN (Reason: anxiety) 5 Days Qty: 10 RF: 0 Continued losartan 50 mg tablet 50 mg PO QAM RF: 0 citalopram 40 mg tablet 40 mg PO QAM RF: 0 famotidine 20 mg tablet 20 mg PO BID RF: 0 simvastatin 20 mg tablet 20 mg PO QPM RF: 0 acetaminophen [Tylenol Extra Strength] 500 mg Tablet 500 mg PO Q6H PRN (Reason: Pain) RF: 0 Tart Jean [id number] mg Capsule 1 cap PO QAM RF: 0 Discharge Orders: Discharge Order (Routine); Ordered 08/25/21 Ordered By: Faith Lees Admission Data Admit Date/Time: 08/24/21 11:43 Attending Provider: Faith Lees Admit Provider: Faith Lees Primary Care Provider: Joel Wright Other Providers: Rita Alvarado ; Hui Valencia ; Mirtha Barnes ; Chan Barraza
--- NOTE | 2021-08-25 14:58 | Psychiatric Consultation ---
Date of Consultation August 25, 2021 Impression / Recommendations Impression This is a 66-year-old woman with anxiety day-to-day functioning. Patient will benefit from adjustments in her psychopharmacologic medications to address this. She otherwise does not represent a danger to herself or others and is cleared from a psychiatric perspective for discharge home and follow-up with outpatient care. (1) Anxiety state, unspecified: Please discharge the patient with a prescription for 0.5 mg of lorazepam twice daily as needed anxiety Please continue prescription of citalopram 40 mg Patient is clear from a psychiatric perspective for discharge back into the community. Psych History Chief Complaint "Nice to meet you". History of Present Illness HPI as per psychiatric liaison "Patient is a 66 year old female who lives in [place]. States she lost her brother in April from an overdose and her September,, due to [place]. 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 Feels she took on more than she was ready to. States she enjoys doing crafts, denies feeling depressed or hopeless, but does admit to struggling with sleep. She struggles with falling asleep, staying asleep and then she will awaken to use the restroom and not be able to fall back to sleep. Reports a good appetite and concentration but is frustrated with not having the energy she had before she had covid. 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 Denies having a therapist, but states she has 7 sisters, so she has many supports. Patient has 3 kids, 6 grandchildren and 1 great grandson. States her sisters are close and are always there for her. Patient's daughter is bipolar, with anxiety and depression. Reports 1 grandson with addiction issues. Denies any tobacco, alcohol or drug use. Has used benedryl in the past for sleep, 50 mg will help her sleep, but 100 mg will make her "edgy". Patient had been using ativan 1 mg daily prn, which she would use when she was struggling with sleep and unable to relax, prescribed by her pcp, Mr. Joel Wright. She does not believe she has used it for the last 3 or 4 years, but states it did help with anxiety and sleep. Patient has no interest in outpatient therapy at this time. She is pleasant and engaging with conversation." Allergies Allergy/AdvReac Type Severity Reaction Status Date / Time sulfamethoxazole Allergy Severe tongue Verified 08/24/21 09:52 [From Bactrim] blisters, rash trimethoprim [From Bactrim] Allergy Severe tongue Verified 08/24/21 09:52 blisters, rash bupropion [From Wellbutrin] Allergy Intermediate rash Verified 08/24/21 09:52 codeine AdvReac Mild HEADACHE,N& Verified 08/24/21 09:52 V Opioids - Morphine Analogues AdvReac Unknown headache Verified 08/24/21 09:52 Home Medications Medication Instructions Recorded Confirmed Type citalopram 40 mg tablet 40 mg PO QAM 03/06/21 08/24/21 History famotidine 20 mg tablet 20 mg PO BID 03/06/21 08/24/21 History losartan 50 mg tablet 50 mg PO QAM 03/06/21 08/24/21 History simvastatin 20 mg tablet 20 mg PO QPM 03/06/21 08/24/21 History acetaminophen 500 mg tablet 500 mg PO Q6H PRN 08/24/21 08/24/21 History (Tylenol Extra Strength) vit C 30 mg-s.jean 250 mg-celery 1 cap PO QAM 08/24/21 08/24/21 History seed 75 mg-grape seed extrt capsule (Tart Jean) lorazepam 0.5 mg tablet 0.5 mg PO BID PRN 5 Days #10 tab 08/25/21 Rx Personal History Beliefs That Will Affect Care: None Patient History Medical History Acid reflux Anxiety state, unspecified Chronic constipation COVID-19 Gastroparesis Hyperlipidemia Hypertension Left knee DJD Persistent insomnia Sleep apnea intolerant of CPAP Surgical History H/O cystoscopy H/O: hysterectomy reports h/o uterine fibroid History of cholecystectomy S/P appy S/P epigastric hernia repair, follow-up exam Family History Father Heart disease Social History Smoking Status: Never smoker Second Hand Exposure: No; Hx Alcohol Use: No Hx Substance Use: No Preferred Language: Uzbek Communication Ability: Effective Dry Goods Inspector Required: No Beliefs That Will Affect Care: None Current Living Situation: Family Current Living Situation Comment: With Granddaughter Other Information That Helps Us Care for You: No Feels Safe at Home: Yes Safety Concerns: Feels Safe At This Time Assistive Devices: None Physical Exam Psychiatric: Orientation: alert and oriented x 3 Apperance: appropriately dressed Eye Contact: good eye contact Motor Behavior: no abnormal motor movements Speech: normal rate/rhythm/volume of speech Affect: euthymic affect Mood: + anxious mood Thought Process: linear/logical thought process Thought Content: reality based without delusions Suicidal Thoughts: denies suicidal thoughts Homicidal Thoughts: denies homicidal thoughts Hallucinations: no auditory hallucinations and no visual hallucinations Cognition: recent memory grossly intact Estimated Intelligence: consistent with education level Insight: good insight Judgement: good judgement Vital Signs (Past 24 Hours): Last Vital Signs Temp 36.8 C 08/25/21 14:19 Pulse 76 08/25/21 14:19 Resp 18 08/25/21 14:19 BP 120/66 08/25/21 14:19 Pulse Ox 96 08/25/21 14:19 Review of Systems All systems reviewed & are unremarkable except as noted in HPI & below Results & Data (PSY) Medications Administered Citalopram Hydrobromide (Citalopram 40 Mg Tab) 40 mg PO QAM AMANDA Stop: 09/24/21 08:59 Last Admin: 08/25/21 08:37 Dose: 40 mg Documented by: [id number] Enoxaparin Sodium (Enoxaparin Inj 40 Mg/0.4 Ml Syr) 40 mg SQ Q24H AMANDA Stop: 09/23/21 15:53 Last Admin: 08/24/21 20:44 Dose: 40 mg Documented by: [id number] Famotidine (Famotidine 20 Mg Tab) 20 mg PO BID AMANDA Stop: 09/23/21 20:59 Last Admin: 08/25/21 08:37 Dose: 20 mg Documented by: [id number] Admin: 08/24/21 20:45 Dose: 20 mg Documented by: [id number] Lorazepam (Lorazepam 0.5 Mg Tab) 0.5 mg PO ONE PRN PRN Reason: anxiety Stop: 09/23/21 17:18 Last Admin: 08/24/21 17:41 Dose: 0.5 mg Documented by: [id number] Losartan Potassium (Losartan Potassium 50 Mg Tab) 50 mg PO QAM AMANDA Stop: 09/24/21 08:59 Last Admin: 08/25/21 08:37 Dose: 50 mg Documented by: [id number] Simvastatin (Simvastatin 20 Mg Tab) 20 mg PO QPM [facility] Stop: 09/23/21 20:59 Last Admin: 08/24/21 20:45 Dose: 20 mg Documented by: [id number] Coding Level of Care Code 13351 [facility] Care Lvl 2 Diagnoses Anxiety state, unspecified F41.1 Time Spent (min) 45
== END 2021-08-25 16:53 | disposition home or self-care (01) ==
LOC: 2S 07:56 → ED 07:56 → 2S 14:05
DX: Z88.2 Allergy status to sulfonamides; K59.00 Constipation, unspecified; R07.89 Other chest pain; Z88.5 Allergy status to narcotic agent; Z20.822 Contact with and (suspected) exposure to COVID-19; Z99.89 Dependence on other enabling machines and devices; Z86.16 Personal history of COVID-19; Z88.8 Allergy status to other drugs, medicaments and biological substances; I10 Essential (primary) hypertension; Z79.899 Other long term (current) drug therapy; G47.33 Obstructive sleep apnea (adult) (pediatric); E78.5 Hyperlipidemia, unspecified; Z82.49 Family history of ischemic heart disease and other diseases of the circulatory system; F41.9 Anxiety disorder, unspecified